=== PATIENT | female | born 1980 | race African-American/Black ===

== ENCOUNTER 2017-04-02 01:23 | Day surgery (SDC) | payer MEDICAID ==
[2017-04-02] MEDS ORDERED: Iopamidol 755 MG/ML 150 ML Bottle IV ONE (05:14)
[2017-04-02] MEDS ORDERED: Metoclopramide 10 MG/2 ML SDV IVPUSH ONE (06:34)
[2017-04-02] MEDS ORDERED: Ketorolac 30 MG/ML SDV IVPUSH ONE ×2 (06:34→10:56)
[2017-04-02] MEDS ORDERED: cefOXitin 2 GM in Sodium Chloride 0.9% 100 ML IV ONE ×5 (07:15→08:00)
--- NOTE | 2017-04-02 07:17 | EDM.PDOC ---
ED HPI GENERAL MEDICAL PROBLEM - General Chief Complaint: General Stated Complaint: STOMACH PAIN Time Seen by Provider: 04/02/17 01:35 Source of Information: Reports: Patient, Family History Limitations: Reports: No Limitations - History of Present Illness INITIAL COMMENTS - FREE TEXT/NARRATIVE: 36 y.o.w.f came to the ed due to RLQ abd pain since yesterday. No F/C. No Trauma, S/P Tubal ligation, s/p Cholecystectomy, s/p descending bladder repair. Onset Date: 03/31/17 Onset Time: 06:00 Duration: Day(s):, Getting Worse Location: Reports: Abdomen (RLQ of abdomen. ) Lower Abdomen Pain Score (Numeric/FACES): 0 - Related Data Allergies Allergy/AdvReac Type Severity Reaction Status Date / Time Latex, Natural Rubber Allergy Swelling Verified 11/28/16 22:44 morphine Allergy Hives Verified 10/10/16 21:58 Home Meds: Home Meds Albuterol/Ipratropium [DuoNeb 3.0-0.5 MG/3 ML] 3 ml NEB Q6HR PRN #30 neb [Rx] Albuterol [IJP: Albuterol] 2.5 mg INH Q4HR PRN 09/09/16 [History] Escitalopram [Lexapro] 20 mg PO BEDTIME 10/10/16 [History] Gabapentin [Neurontin] 300 mg PO BID 11/28/16 [History] Pregabalin [Lyrica] 25 mg PO BEDTIME 11/28/16 [History] Past Medical History - Past Health History Medical/Surgical History: Denies Medical/Surgical History HEENT History: Reports: Impaired Vision Respiratory History: Reports: Asthma, Other (See Below) Other Respiratory History: smoker Gastrointestinal History: Reports: Cholelithiasis, Other (See Below) Other Gastrointestinal History: colitis Genitourinary History: Reports: Renal Calculus, UTI, Recurrent 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 History: Musculoskeletal History: Reports: Arthritis, Other (See Below) Other Musculoskeletal History: carpal tunnel R wrist Neurological History: Reports: Concussion, Migraines Psychiatric History: Reports: Anxiety, Depression, Psych Hospitalization(s) Endocrine/Metabolic History: Reports: Obesity/BMI 30+ Hematologic History: Reports: Anemia, Iron Deficiency Oncologic (Cancer) History: Reports: Uterine - Infectious Disease History Infectious Disease History: Reports: Chicken Pox - Past Surgical History HEENT Surgical History: Reports: Oral Surgery, Tonsillectomy Female Surgical History: Reports: Hysterectomy, Tubal Ligation Musculoskeletal Surgical History: Reports: Arthroscopic Knee Oncologic Surgical History: Reports: None, Other (See Below) Social & Family History - Family History Family Medical History: Noncontributory - Tobacco Use Smoking Status *Q: Current Every Day Smoker Years of Tobacco use: 10 Packs/Tins Daily: 1 Used Tobacco, but Quit: No Second Hand Smoke Exposure: No - Caffeine Use Caffeine Use: Reports: Coffee - Alcohol Use Days Per Week of Alcohol Use: 0 Number of Drinks Per Day: 1 Total Drinks Per Week: 0 - Recreational Drug Use Recreational Drug Use: No Drug Use in Last 12 Months: Yes Recreational Drug Type: Reports: Marijuana/Hashish Recreational Drug Use Frequency: Not Used In Over 1 Month - Living Situation & Occupation Living situation: Reports: , with Family Occupation: Unemployed ED ROS GENERAL - Review of Systems Review Of Systems: See Below Constitutional: Reports: No Symptoms HEENT: Reports: No Symptoms Respiratory: Reports: No Symptoms Cardiovascular: Reports: No Symptoms Endocrine: Reports: No Symptoms GI/Abdominal: Reports: Abdominal Pain : Reports: No Symptoms Musculoskeletal: Reports: No Symptoms Skin: Reports: No Symptoms Neurological: Reports: No Symptoms Psychiatric: Reports: No Symptoms Hematologic/Lymphatic: Reports: No Symptoms Immunologic: Reports: No Symptoms ED EXAM, GENERAL - Physical Exam Exam: See Below Exam Limited By: No Limitations General Appearance: Alert, WD/WN, Mild Distress, Obese Eye Exam: Bilateral Eye: Normal Inspection Ears: Normal External Exam Ear Exam: Bilateral Ear: Auricle Normal Nose: Normal Inspection, Normal Mucosa Throat/Mouth: Normal Inspection, Normal Lips Head: Atraumatic, Normocephalic Neck: Normal Inspection, Supple, Non-Tender, Full Range of Motion Respiratory/Chest: No Respiratory Distress, Lungs Clear, Normal Breath Sounds, No Accessory Muscle Use Cardiovascular: Normal Peripheral Pulses, Regular Rate, Rhythm, No Edema, No Gallop Peripheral Pulses: 1+: Femoral (L), Femoral (R) GI/Abdominal: Normal Bowel Sounds, Rebound, Tender (Female) Exam: Deferred Rectal (Female) Exam: Deferred Back Exam: Normal Inspection, Full Range of Motion Extremities: Normal Inspection, Normal Range of Motion, Non-Tender, No Pedal Edema Neurological: Alert, Oriented, CN II-XII Intact, Normal Cognition, Normal Gait Psychiatric: Normal Affect, Normal Mood Skin Exam: Warm, Dry, Intact, Normal Color, No Rash Lymphatic: No Adenopathy Course - Vital Signs Text/Narrative:: 36 y.o.w.f came to the ed due to RLQ abd pain since yesterday. No F/C. No Trauma, S/P Tubal ligation, s/p Cholecystectomy, s/p descending bladder repair. Last BM lastnight. Last foodintake Tuesday evening, no , does not take any blood thinners. PE: Morbid obese, RLQ abd. pain Labs: WBC 14K Imaging: Possible early appy. Impression: Possible early appy. Tx: 2 gm cefoxitin, Toradol 30 mg and Zofran 8 mg i.v. Reexam: Improved 7.15 am: Consultation: Dr. Choudhury, Surgeon: Will see the pt in the ED Plan: admit for surgery. Last Recorded V/S: Last Vital Signs Temp 37.0 C 04/02/17 04:13 Pulse 86 04/02/17 02:37 Resp 20 04/02/17 04:13 BP 124/72 04/02/17 04:13 Pulse Ox 97 04/02/17 04:13 - Orders/Labs/Meds Orders: Active Orders 24 hr Category Date Time Status Abdomen Pelvis w Cont [CT] Stat Exams 04/02/17 04:49 Taken cefOXitin [Mefoxin] 2 gm Med 04/02/17 07:15 Active Sodium Chloride 0.9% [Normal Saline] 100 ml IV ONETIME Medication Orders Cefoxitin Sodium 2 gm/ Sodium (Chloride) 100 mls @ 200 mls/hr IV ONETIME ONE Stop: 04/02/17 07:44 Labs: Laboratory Tests 04/02/17 04/02/17 04/02/17 Range/Units 02:03 02:03 03:08 WBC 14.3 H (4.5-12.0) X10-3/uL RBC 5.57 H (3.23-5.20) x10(6)uL Hgb 11.7 (11.5-15.5) g/dL Hct 35.7 (30.0-51.3) % MCV 64.1 L (80-96) fL MCH 20.9 L (27.7-33.6) pg MCHC 32.6 (32.2-35.4) g/dL RDW 15.8 H (11.5-15.5) % Plt Count 218 (125-369) X10(3)uL MPV 8.6 (7.4-10.4) fL Neut % (Auto) 69.2 (46-82) % Lymph % (Auto) 24.3 (13-37) % [place] % (Auto) 5.4 (4-12) % Eos % (Auto) 1 (1.0-5.0) % Baso % (Auto) 0 (0-2) % Neut # (Auto) 9.8 H (1.6-8.3) # Lymph # (Auto) 3.5 (0.6-5.0) # [place] # (Auto) 0.8 (0.0-1.3) # Eos # (Auto) 0.1 (0.0-0.8) # Baso # (Auto) 0.1 (0.0-0.2) # Sodium (135-145) mmol/L Potassium (3.5-5.3) mmol/L Chloride (100-110) mmol/L Carbon Dioxide (23-29) mmol/L BUN (5-20) mg/dL Creatinine (0.6-1.3) mg/dL Est Cr Clr Drug Dosing mL/min Estimated GFR (MDRD) (>60) BUN/Creatinine Ratio (9-20) Glucose (80-116) mg/dL Calcium (8.6-10.2) mg/dL Urine Color Yellow (YELLOW) Urine Appearance Slightly cloudy (CLEAR) Urine pH 6.0 (5.0-6.5) Ur Specific [place] 1.015 (1.010-1.025) Urine Protein Negative (NEGATIVE) mg/dL Urine Glucose (UA) Normal (NEGATIVE) mg/dL Urine Ketones Negative (NEGATIVE) mg/dL Urine Occult Blood Negative (NEGATIVE) Urine Nitrite Negative (NEGATIVE) Urine Bilirubin Negative (NEGATIVE) Urine Urobilinogen Normal (NEGATIVE) mg/dL Ur Leukocyte Esterase Negative (NEGATIVE) Urine RBC 0-5 (0) Urine WBC 0-5 (0) Ur Squamous Epith Cells Few H (NS,R,O) Urine Bacteria Few H (NS) Urine HCG, Qual Negative (NEGATIVE) 04/02/17 Range/Units 03:08 WBC (4.5-12.0) X10-3/uL RBC (3.23-5.20) x10(6)uL Hgb (11.5-15.5) g/dL Hct (30.0-51.3) % MCV (80-96) fL MCH (27.7-33.6) pg MCHC (32.2-35.4) g/dL RDW (11.5-15.5) % Plt Count (125-369) X10(3)uL MPV (7.4-10.4) fL Neut % (Auto) (46-82) % Lymph % (Auto) (13-37) % [place] % (Auto) (4-12) % Eos % (Auto) (1.0-5.0) % Baso % (Auto) (0-2) % Neut # (Auto) (1.6-8.3) # Lymph # (Auto) (0.6-5.0) # [place] # (Auto) (0.0-1.3) # Eos # (Auto) (0.0-0.8) # Baso # (Auto) (0.0-0.2) # Sodium 138 (135-145) mmol/L Potassium 3.1 L (3.5-5.3) mmol/L Chloride 105 (100-110) mmol/L Carbon Dioxide 27 (23-29) mmol/L BUN 8 (5-20) mg/dL Creatinine 0.6 (0.6-1.3) mg/dL Est Cr Clr Drug Dosing 100.55 mL/min Estimated GFR (MDRD) > 60 (>60) BUN/Creatinine Ratio 13.3 (9-20) Glucose 93 (80-116) mg/dL Calcium 9.1 (8.6-10.2) mg/dL Urine Color (YELLOW) Urine Appearance (CLEAR) Urine pH (5.0-6.5) Ur Specific [place] (1.010-1.025) Urine Protein (NEGATIVE) mg/dL Urine Glucose (UA) (NEGATIVE) mg/dL Urine Ketones (NEGATIVE) mg/dL Urine Occult Blood (NEGATIVE) Urine Nitrite (NEGATIVE) Urine Bilirubin (NEGATIVE) Urine Urobilinogen (NEGATIVE) mg/dL Ur Leukocyte Esterase (NEGATIVE) Urine RBC (0) Urine WBC (0) Ur Squamous Epith Cells (NS,R,O) Urine Bacteria (NS) Urine HCG, Qual (NEGATIVE) Meds: Medications Generic Name Dose Route Start Last Admin Trade Name Jon PRN Reason Stop Dose Admin Cefoxitin Sodium 2 gm/ Sodium 100 mls @ 200 mls/hr 04/02/17 07:15 Chloride IV 04/02/17 07:44 ONETIME ONE Discontinued Medications Generic Name Dose Route Start Last Admin Trade Name Jon PRN Reason Stop Dose Admin Iopamidol 150 ml 04/02/17 05:14 04/02/17 05:32 Isovue-370 (76%) IV 04/02/17 05:15 118 ml ONETIME ONE Administration Ketorolac Tromethamine 30 mg 04/02/17 06:34 04/02/17 06:42 Toradol IVPUSH 04/02/17 06:35 30 mg ONETIME ONE Administration Metoclopramide HCl 10 mg 04/02/17 06:34 04/02/17 06:42 Reglan IVPUSH 04/02/17 06:35 10 mg ONETIME ONE Administration Departure - Departure Time of Disposition: 07:40 Disposition: Refer to Observation Condition: fair Clinical Impression: Appendicitis Qualifiers: Appendicitis type: acute appendicitis Acute appendicitis type: with localized peritonitis Qualified Code(s): K35.3 - Acute appendicitis with localized peritonitis - Discharge Information Forms: ED Department Discharge - My Orders Last 24 Hours: My Active Orders 04/02/17 04:49 Abdomen Pelvis w Cont [CT] Stat 04/02/17 07:15 cefOXitin [Mefoxin] 2 gm Sodium Chloride 0.9% [Normal Saline] 100 ml IV ONETIME - Assessment/Plan Last 24 Hours: My Active Orders 04/02/17 04:49 Abdomen Pelvis w Cont [CT] Stat 04/02/17 07:15 cefOXitin [Mefoxin] 2 gm Sodium Chloride 0.9% [Normal Saline] 100 ml IV ONETIME
[2017-04-02] MEDS ORDERED: Ondansetron 4 MG/2 ML SDV IVPUSH ONE ×2 (07:53→10:56)
[2017-04-02] MEDS: Lactated Ringers 1,000 ML IV SCH ×2 (08:00→17:35)
[2017-04-02] MEDS ORDERED: Potassium Chloride 20 MEQ in Premix Bag 1 BAG IV ONE (08:04)
[2017-04-02] MEDS ORDERED: Sodium Chloride 0.9% 10 ML Syringe FLUSH PRN (08:05)
--- NOTE | 2017-04-02 08:13 | PCM.HP ---
H&P History of Present Illness - General Date of Service: 04/02/17 Admit Problem/Dx: Admission Diagnosis/Problem Admission Diagnosis/Problem Appendicitis Source of Information: Patient History Limitations: Reports: No Limitations - History of Present Illness Initial Comments - Free Text/Narative: 36 yo wf who as developed some anorexia as well as some abd pain. This also has been accompanied by some emesis and loose stools. The pain apparently got progressively worse during the night. Noted in the ED to have a leukocytosis , and CT scan of the abdomen demonstrated a dilated distal appendiceal tip consistent with early appendicitis. Lower Abdomen Pain Score (Numeric/FACES): 0 - Related Data Allergies/Adverse Reactions: Allergies Allergy/AdvReac Type Severity Reaction Status Date / Time Latex, Natural Rubber Allergy Swelling Verified 11/28/16 22:44 morphine Allergy Hives Verified 10/10/16 21:58 Home Medications: Home Meds Albuterol/Ipratropium [DuoNeb 3.0-0.5 MG/3 ML] 3 ml NEB Q6HR PRN #30 neb [Rx] Albuterol [IJP: Albuterol] 2.5 mg INH Q4HR PRN 09/09/16 [History] Escitalopram [Lexapro] 20 mg PO BEDTIME 10/10/16 [History] Past Medical History - Past Health History Medical/Surgical History: Denies Medical/Surgical History HEENT History: Reports: Impaired Vision Respiratory History: Reports: Asthma, Other (See Below) Other Respiratory History: smoker Gastrointestinal History: Reports: Cholelithiasis, Other (See Below) Other Gastrointestinal History: colitis Genitourinary History: Reports: Renal Calculus, UTI, Recurrent 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 History: Musculoskeletal History: Reports: Arthritis, Other (See Below) Other Musculoskeletal History: carpal tunnel R wrist Neurological History: Reports: Concussion, Migraines Psychiatric History: Reports: Anxiety, Depression, Psych Hospitalization(s) Endocrine/Metabolic History: Reports: Obesity/BMI 30+ Hematologic History: Reports: Anemia, Iron Deficiency Oncologic (Cancer) History: Reports: Uterine - Infectious Disease History Infectious Disease History: Reports: Chicken Pox - Past Surgical History HEENT Surgical History: Reports: Oral Surgery, Tonsillectomy Female Surgical History: Reports: Hysterectomy, Tubal Ligation Musculoskeletal Surgical History: Reports: Arthroscopic Knee Oncologic Surgical History: Reports: None, Other (See Below) Social & Family History - Family History Family Medical History: Noncontributory - Tobacco Use Smoking Status *Q: Current Every Day Smoker Years of Tobacco use: 10 Packs/Tins Daily: 1 Used Tobacco, but Quit: No Second Hand Smoke Exposure: No - Caffeine Use Caffeine Use: Reports: Coffee - Alcohol Use Days Per Week of Alcohol Use: 0 Number of Drinks Per Day: 1 Total Drinks Per Week: 0 - Recreational Drug Use Recreational Drug Use: No Drug Use in Last 12 Months: Yes Recreational Drug Type: Reports: Marijuana/Hashish Recreational Drug Use Frequency: Not Used In Over 1 Month - Living Situation & Occupation Living situation: Reports: , with Family Occupation: Unemployed H&P Review of Systems - Review of Systems: Review Of Systems: See Below General: Reports: Decreased Appetite. Denies: Fever HEENT: Reports: No Symptoms Pulmonary: Reports: No Symptoms Cardiovascular: Reports: No Symptoms Gastrointestinal: Reports: Abdominal Pain, Anorexia, Diarrhea, Nausea Genitourinary: Reports: No Symptoms Musculoskeletal: Reports: No Symptoms Skin: Reports: No Symptoms Exam - Exam Exam: See Below - Vital Signs Vital Signs: Last Vital Signs Temp 37.0 C 04/02/17 04:13 Pulse 86 04/02/17 02:37 Resp 20 04/02/17 04:13 BP 124/72 04/02/17 04:13 Pulse Ox 97 04/02/17 04:13 Weight: 104.326 kg - Exam General: Alert, Oriented, Cooperative HEENT: PERRLA, Conjunctiva Clear, EOMI, Hearing Intact, Nares Patent, Posterior Pharynx Clear Neck: Supple Lungs: Clear to Auscultation, Normal Respiratory Effort Cardiovascular: Regular Rate, Regular Rhythm Abdomen: Normal Bowel Sounds, Soft, Tenderness, McBurney's Sign (Female) Exam: Deferred Extremities: Normal Inspection - Patient Data Lab Results last 24 hrs: Laboratory Results - last 24 hr 04/02/17 04/02/17 04/02/17 Range/Units 02:03 02:03 03:08 WBC 14.3 H (4.5-12.0) X10-3/uL RBC 5.57 H (3.23-5.20) x10(6)uL Hgb 11.7 (11.5-15.5) g/dL Hct 35.7 (30.0-51.3) % MCV 64.1 L (80-96) fL MCH 20.9 L (27.7-33.6) pg MCHC 32.6 (32.2-35.4) g/dL RDW 15.8 H (11.5-15.5) % Plt Count 218 (125-369) X10(3)uL MPV 8.6 (7.4-10.4) fL Neut % (Auto) 69.2 (46-82) % Lymph % (Auto) 24.3 (13-37) % [place] % (Auto) 5.4 (4-12) % Eos % (Auto) 1 (1.0-5.0) % Baso % (Auto) 0 (0-2) % Neut # (Auto) 9.8 H (1.6-8.3) # Lymph # (Auto) 3.5 (0.6-5.0) # [place] # (Auto) 0.8 (0.0-1.3) # Eos # (Auto) 0.1 (0.0-0.8) # Baso # (Auto) 0.1 (0.0-0.2) # Sodium (135-145) mmol/L Potassium (3.5-5.3) mmol/L Chloride (100-110) mmol/L Carbon Dioxide (23-29) mmol/L BUN (5-20) mg/dL Creatinine (0.6-1.3) mg/dL Est Cr Clr Drug Dosing mL/min Estimated GFR (MDRD) (>60) BUN/Creatinine Ratio (9-20) Glucose (80-116) mg/dL Calcium (8.6-10.2) mg/dL Urine Color Yellow (YELLOW) Urine Appearance Slightly cloudy (CLEAR) Urine pH 6.0 (5.0-6.5) Ur Specific [place] 1.015 (1.010-1.025) Urine Protein Negative (NEGATIVE) mg/dL Urine Glucose (UA) Normal (NEGATIVE) mg/dL Urine Ketones Negative (NEGATIVE) mg/dL Urine Occult Blood Negative (NEGATIVE) Urine Nitrite Negative (NEGATIVE) Urine Bilirubin Negative (NEGATIVE) Urine Urobilinogen Normal (NEGATIVE) mg/dL Ur Leukocyte Esterase Negative (NEGATIVE) Urine RBC 0-5 (0) Urine WBC 0-5 (0) Ur Squamous Epith Cells Few H (NS,R,O) Urine Bacteria Few H (NS) Urine HCG, Qual Negative (NEGATIVE) 04/02/17 Range/Units 03:08 WBC (4.5-12.0) X10-3/uL RBC (3.23-5.20) x10(6)uL Hgb (11.5-15.5) g/dL Hct (30.0-51.3) % MCV (80-96) fL MCH (27.7-33.6) pg MCHC (32.2-35.4) g/dL RDW (11.5-15.5) % Plt Count (125-369) X10(3)uL MPV (7.4-10.4) fL Neut % (Auto) (46-82) % Lymph % (Auto) (13-37) % [place] % (Auto) (4-12) % Eos % (Auto) (1.0-5.0) % Baso % (Auto) (0-2) % Neut # (Auto) (1.6-8.3) # Lymph # (Auto) (0.6-5.0) # [place] # (Auto) (0.0-1.3) # Eos # (Auto) (0.0-0.8) # Baso # (Auto) (0.0-0.2) # Sodium 138 (135-145) mmol/L Potassium 3.1 L (3.5-5.3) mmol/L Chloride 105 (100-110) mmol/L Carbon Dioxide 27 (23-29) mmol/L BUN 8 (5-20) mg/dL Creatinine 0.6 (0.6-1.3) mg/dL Est Cr Clr Drug Dosing 100.55 mL/min Estimated GFR (MDRD) > 60 (>60) BUN/Creatinine Ratio 13.3 (9-20) Glucose 93 (80-116) mg/dL Calcium 9.1 (8.6-10.2) mg/dL Urine Color (YELLOW) Urine Appearance (CLEAR) Urine pH (5.0-6.5) Ur Specific [place] (1.010-1.025) Urine Protein (NEGATIVE) mg/dL Urine Glucose (UA) (NEGATIVE) mg/dL Urine Ketones (NEGATIVE) mg/dL Urine Occult Blood (NEGATIVE) Urine Nitrite (NEGATIVE) Urine Bilirubin (NEGATIVE) Urine Urobilinogen (NEGATIVE) mg/dL Ur Leukocyte Esterase (NEGATIVE) Urine RBC (0) Urine WBC (0) Ur Squamous Epith Cells (NS,R,O) Urine Bacteria (NS) Urine HCG, Qual (NEGATIVE) Result Diagrams: 04/02/17 03:08 04/02/17 03:08 *Q Meaningful Use (ADM) - VTE *Q VTE Criteria *Q: VTE Anticoagulation Contraindications: Medical/procedure contrai - Stroke *Q Stroke Criteria *Q: - AMI *Q AMI Criteria *Q: - Problem List (1) Appendicitis SNOMED Code(s): 48295650 ICD Code: K37 - UNSPECIFIED APPENDICITIS Status: Acute Current Visit: Yes Qualifiers: Appendicitis type: acute appendicitis Acute appendicitis type: with localized peritonitis Qualified Code(s): K35.3 - Acute appendicitis with localized peritonitis Problem List Initiated/Reviewed/Updated: Yes Orders Last 24hrs: Active Orders 24 hr Category Date Time Status Patient Status [ADT] Routine ADT 04/02/17 08:05 Ordered Patient to Empty Bladder [RC] ASDIRECTED Care 04/02/17 08:05 Ordered Verify Patient Consent Obtain [RC] ASDIRECTED Care 04/02/17 08:05 Ordered Nothing Per Oral Diet [DIET] Diet 04/02/17 Breakfast Ordered Abdomen Pelvis w Cont [CT] Stat Exams 04/02/17 04:49 Taken Lactated Ringers @ 125 MLS/HR(1000ml) Med 04/02/17 08:15 Ordered Lactated Ringers [Ringers, Lactated] 1,000 ml IV ASDIRECTED Potassium Chloride [KCL 20 MEQ in Water 100 ML] 20 meq Med 04/02/17 08:04 Ordered Premix Bag 1 bag IV ONETIME Sodium Chloride 0.9% [Saline Flush] Med 04/02/17 08:05 Ordered 10 ml FLUSH ASDIRECTED PRN cefOXitin [Mefoxin] 2 gm Med 04/02/17 08:00 Active Sodium Chloride 0.9% [Normal Saline] 100 ml IV ONETIME Peripheral IV Insertion Adult [OM.PC] Routine Oth 04/02/17 08:05 Ordered Sequential Compression Device [OM.PC] Routine Oth 04/02/17 08:05 Ordered Resuscitation Status Routine Resus Stat 04/02/17 08:05 Ordered Medication Orders Cefoxitin Sodium 2 gm/ Sodium (Chloride) 100 mls @ 200 mls/hr IV ONETIME ONE Stop: 04/02/17 08:29 Potassium Chloride 20 meq/ (Premix) 100 mls @ 50 mls/hr IV ONETIME ONE Stop: 04/02/17 10:03 Assessment/Plan Comment:: lap appendectomy. procedure and risks were explained to the pt to include bleeding, infection, injury to bowel, bladder, blood vessel. The need to convert to open was also discussed. She expressed understanding and asked us to proceed.
[2017-04-02] MEDS ORDERED: fentaNYL 100 MCG/2 ML SDV IV ONE (10:56)
[2017-04-02] MEDS ORDERED: Dexamethasone 4 MG/ML 5 ML MDV IVPUSH ONE (10:56)
[2017-04-02] MEDS ORDERED: Rocuronium 50 MG/5 ML Vial IV ONE (10:56)
[2017-04-02] MEDS ORDERED: Propofol 200 MG/20 ML SDV IV ONE (10:56)
[2017-04-02] MEDS ORDERED: Albuterol 8 GM Inhaler INH ONE (10:56)
[2017-04-02] MEDS ORDERED: Lidocaine 2% 100 MG/5 ML Syringe IVPUSH ONE (10:56)
[2017-04-02] MEDS ORDERED: diphenhydrAMINE 50 MG/ML SDV IV ONE (10:56)
[2017-04-02] MEDS ORDERED: Midazolam 1 MG/ML 2 ML SDV IV ONE (10:56)
[2017-04-02] MEDS ORDERED: Succinylcholine/Normal Saline 200 MG/10 ML Syringe IV ONE (10:56)
[2017-04-02] MEDS ORDERED: Lactated Ringers 1,000 ML IV ONE (10:56)
[2017-04-02] MEDS ORDERED: Sugammadex Sodium 200 MG/2 ML VIAL IV ONE (10:56)
[2017-04-02] MEDS ORDERED: Bupivacaine 0.5% 30 ML SDV ONE (11:37)
[2017-04-02] MEDS ORDERED: Lidocaine 1% with EPINEPHrine 1:100,000 20 ML MDV ONE (11:38)
[2017-04-02] MEDS ORDERED: HYDROmorphone 2 MG/ML SDV IVPUSH PRN (11:50)
--- NOTE | 2017-04-02 11:50 | PCM.OPNOTE ---
- General Post-Op/Procedure Note Date of Surgery/Procedure: 04/02/17 Operative Procedure(s): lap appendectomy Findings: early appendicitis Pre Op Diagnosis: appendicitis Post-Op Diagnosis: Same Anesthesia Technique: General ET tube, Local (8 ml 1 % lido with epi/0.5% buvipicaine) Primary Surgeon: Bj Choudhury Anesthesia Provider: Guillermina Cagle Pathology: appendix EBL in mLs: 2 Condition: Good Free Text/Narrative:: see dictation
[2017-04-02] MEDS ORDERED: Ondansetron 4 MG/2 ML SDV IVPUSH PRN (12:39)
[2017-04-02] MEDS: cefOXitin 2 GM in Sodium Chloride 0.9% 50 ML IV SCH ×2 (13:42→19:54)
[2017-04-02] MEDS: Acetaminophen/HYDROcodone 325-5 MG Tab PO PRN ×2 (17:30→22:05)
--- NOTE | 2017-04-02 18:15 | OR ---
DATE OF OPERATION: 04/02/2017 SURGEON: Bj Choudhury MD PROCEDURE PERFORMED: Laparoscopic appendectomy. PREOPERATIVE DIAGNOSIS: Acute appendicitis. POSTOPERATIVE DIAGNOSIS: Acute appendicitis. INDICATIONS FOR PROCEDURE: This is a 36-year-old white female, who presented to the emergency department and underwent a subsequent workup, which demonstrated leukocytosis as well as an early appendicitis on CT scan. She was also noted to have marked rebound and guarding in the right lower quadrant. She was offered and accepted laparoscopic appendectomy. INTRAOPERATIVE FINDINGS: As follows. An early appendicitis was identified. A total of 8 mL of 1:1 mixture of 1% lidocaine with epinephrine, 0.5% bupivacaine was used to infiltrate the trocar sites. DESCRIPTION OF OPERATION: After an excellent general anesthetic was administered, the patient was prepped and draped in the usual sterile manner. A 1:1 mixture of 1% lidocaine with epinephrine 0.5% bupivacaine was used to infiltrate the area just below the umbilicus. A vertical midline incision was made. Blunt dissection was carried out exposing the midline fascia. Two stay sutures of 0 Vicryl were placed on either side of the midline fascia. The fascia was elevated, incised, and the abdominal cavity was entered. A 10.5 mm Triston trocar was inserted into the patient's abdomen, which was then insufflated to 15 mmHg using carbon dioxide. Under direct visualization, two 5 mm ports were placed, one in the midline just below the umbilical insertion and one in the right lower quadrant. The cecum was grasped. The large appendix was identified. A rent was made in the mesoappendix and using a 2.5 mm load, the appendix was transected from the cecum. Using an additional two firings of the 2.5 load, the mesoappendix was divided. Specimen was passed into the specimen bag and delivered out through the umbilical port. The area was irrigated and after assuring excellent hemostasis, the trocars were removed under direct visualization. Fascia was closed with [id number] 0 Vicryl and the 2 stay sutures were tied to each other. [place] were used to close the skin. Needle, sponge, and instrument counts were reported as correct. The patient was taken to recovery room in good condition. /[id number] /MODL
[2017-04-03] MEDS: cefOXitin 2 GM in Sodium Chloride 0.9% 50 ML IV SCH (01:59)
[2017-04-03] MEDS: Lactated Ringers 1,000 ML IV SCH (02:00)
--- NOTE | 2017-04-03 07:50 | PCM.SURGPN ---
- General Info Date of Service: 04/03/17 POD#: 1 Functional Status: Reports: pain controlled, tolerating diet, ambulating, new symptoms - Review of Systems HEENT: Reports: no symptoms Pulmonary: Reports: no symptoms Cardiovascular: Reports: No Symptoms Gastrointestinal: Reports: No symptoms, Flatus - Patient Data Vitals - most recent: Last Vital Signs Temp 36.9 C 04/03/17 04:00 Pulse 73 04/03/17 04:00 Resp 20 04/03/17 04:00 BP 131/84 04/03/17 04:00 Pulse Ox 95 04/03/17 04:00 Weight - most recent: 101.695 kg I&O - last 24 hours: Intake & Output 04/02/17 04/03/17 04/03/17 22:59 06:59 14:59 Intake Total 50 4052 Balance 50 4052 Lab Results last 24 hrs: Laboratory Results - last 24 hr 04/03/17 Range/Units 06:10 WBC 18.2 H (4.5-12.0) X10-3/uL RBC 5.12 (3.23-5.20) x10(6)uL Hgb 10.6 L (11.5-15.5) g/dL Hct 32.5 (30.0-51.3) % MCV 63.5 L (80-96) fL MCH 20.7 L (27.7-33.6) pg MCHC 32.6 (32.2-35.4) g/dL RDW 16.1 H (11.5-15.5) % Plt Count 196 (125-369) X10(3)uL MPV 8.5 (7.4-10.4) fL Add Manual Diff Yes Neutrophils % (Manual) 85 H (46-82) % Band Neutrophils % 2 (0-6) % Lymphocytes % (Manual) 11 L (13-37) % Monocytes % (Manual) 2 L (4-12) % Hypochromasia Moderate H Microcytosis Many H Med Orders - Current: Current Medications Hydrocodone Bitart/Acetaminophen (Dante 325-5 Mg) 1 tab PO Q4H PRN PRN Reason: Pain Last Admin: 04/02/17 22:05 Dose: 1 tab Lactated Ringer's (Ringers, Lactated) 1,000 mls @ 125 mls/hr IV ASDIRECTED [facility] Last Admin: 04/03/17 02:00 Dose: 125 mls/hr Cefoxitin Sodium 2 gm/ Sodium (Chloride) 50 mls @ 100 mls/hr IV Q6H [facility] Last Admin: 04/03/17 01:59 Dose: 100 mls/hr Ondansetron HCl (Zofran) 4 mg IVPUSH Q8H PRN PRN Reason: Nausea/Vomiting Sodium Chloride (Saline Flush) 10 ml FLUSH ASDIRECTED PRN PRN Reason: Keep Vein Open Discontinued Medications Bupivacaine HCl (Marcaine 0.5%) 15 ml .XX .STK-MED ONE Stop: 04/02/17 11:38 Last Admin: 04/02/17 11:37 Dose: 15 ml Hydromorphone HCl (Dilaudid) 1 mg IVPUSH Q1H PRN PRN Reason: Pain (moderate 4-6) Cefoxitin Sodium 2 gm/ Sodium (Chloride) 100 mls @ 200 mls/hr IV ONETIME ONE Stop: 04/02/17 08:29 Cefoxitin Sodium 2 gm/ Sodium (Chloride) 100 mls @ 200 mls/hr IV ONETIME ONE Stop: 04/02/17 08:29 Last Admin: 04/02/17 08:10 Dose: 200 mls/hr Potassium Chloride 20 meq/ (Premix) 100 mls @ 50 mls/hr IV ONETIME ONE Stop: 04/02/17 10:03 Last Admin: 04/02/17 08:40 Dose: 50 mls/hr Iopamidol (Isovue-370 (76%)) 150 ml IV ONETIME ONE Stop: 04/02/17 05:15 Last Admin: 04/02/17 05:32 Dose: 118 ml Ketorolac Tromethamine (Toradol) 30 mg IVPUSH ONETIME ONE Stop: 04/02/17 06:35 Last Admin: 04/02/17 06:42 Dose: 30 mg Lidocaine/Epinephrine (Xylocaine 1% With Epinephrine 1:100,000) 15 ml .XX .STK- MED ONE Stop: 04/02/17 11:39 Last Admin: 04/02/17 11:38 Dose: 15 ml Metoclopramide HCl (Reglan) 10 mg IVPUSH ONETIME ONE Stop: 04/02/17 06:35 Last Admin: 04/02/17 06:42 Dose: 10 mg Ondansetron HCl (Zofran) 8 mg IVPUSH ONETIME ONE Stop: 04/02/17 07:54 Last Admin: 04/02/17 08:15 Dose: 8 mg - Exam Wound/Incisions: dressing dry and intact General: alert, oriented, no acute distress Lungs: Clear to auscultation, Normal respiratory effort Cardiovascular: Regular Rate, Regular Rhythm Abdomen: bowel sounds present, soft, no tenderness, no distension Skin: warm, dry, intact - Problem List & Annotations (1) Appendicitis SNOMED Code(s): 92244168 Code(s): K37 - UNSPECIFIED APPENDICITIS Status: Acute Current Visit: Yes Qualifiers: Appendicitis type: acute appendicitis Acute appendicitis type: with localized peritonitis Qualified Code(s): K35.3 - Acute appendicitis with localized peritonitis - Problem List Review Problem List Initiated/Reviewed/Updated: Yes - My Orders Last 24 Hours: Active Orders 24 hr Category Date Time Status Patient Status [ADT] Routine ADT 04/02/17 08:05 Active Ambulate [RC] .TID Care 04/02/17 11:51 Active Notify Provider Vital Signs [RC] PRN Care 04/02/17 11:51 Active Oxygen Therapy [RC] PRN Care 04/02/17 11:50 Active Patient to Empty Bladder [RC] ASDIRECTED Care 04/02/17 08:05 Hold RT Incentive Spirometry [RC] Q2HWA Care 04/02/17 11:50 Active Vital Signs [RC] Q4HR Care 04/02/17 11:50 Active Clear Liquid Diet [DIET] Diet 04/02/17 Dinner Ordered Acetaminophen/HYDROcodone [Dante 325-5 MG] Med 04/02/17 13:07 Active 1 tab PO Q4H PRN Lactated Ringers [Ringers, Lactated] 1,000 ml Med 04/02/17 08:15 Active IV ASDIRECTED Ondansetron [Zofran] Med 04/02/17 12:39 Active 4 mg IVPUSH Q8H PRN Sodium Chloride 0.9% [Saline Flush] Med 04/02/17 08:05 Active 10 ml FLUSH ASDIRECTED PRN cefOXitin [Mefoxin] 2 gm Med 04/02/17 14:00 Active Sodium Chloride 0.9% [Normal Saline] 50 ml IV Q6H Peripheral IV Insertion Adult [OM.PC] Routine Oth 04/02/17 08:05 Ordered Sequential Compression Device [OM.PC] Routine Oth 04/02/17 08:05 Ordered Resuscitation Status Routine Resus Stat 04/02/17 08:05 Ordered Medication Orders Hydrocodone Bitart/Acetaminophen (Dante 325-5 Mg) 1 tab PO Q4H PRN PRN Reason: Pain Last Admin: 04/02/17 22:05 Dose: 1 tab Admin: 04/02/17 17:30 Dose: 1 tab Lactated Ringer's (Ringers, Lactated) 1,000 mls @ 125 mls/hr IV ASDIRECTED [facility] Last Admin: 04/03/17 02:00 Dose: 125 mls/hr Infusion: 04/03/17 01:35 Dose: 125 mls/hr Admin: 04/02/17 17:35 Dose: 125 mls/hr Infusion: 04/02/17 16:00 Dose: 125 mls/hr Admin: 04/02/17 08:00 Dose: 125 mls/hr Cefoxitin Sodium 2 gm/ Sodium (Chloride) 50 mls @ 100 mls/hr IV Q6H [facility] Last Admin: 04/03/17 01:59 Dose: 100 mls/hr Admin: 04/02/17 19:54 Dose: 100 mls/hr Admin: 04/02/17 13:42 Dose: 100 mls/hr Ondansetron HCl (Zofran) 4 mg IVPUSH Q8H PRN PRN Reason: Nausea/Vomiting Sodium Chloride (Saline Flush) 10 ml FLUSH ASDIRECTED PRN PRN Reason: Keep Vein Open - Assessment Assessment (Free Text/Narrative):: while wbc is up clinically her exam is totally unremarkable. this appears to be more of a demargination than anything. will discharge to home
[2017-04-03 08:30] VITALS: BP 141/90
== END 2017-04-03 08:25 | disposition home or self-care (01) ==
LOC: FB.ED 01:23 → FB.SDS 08:39 → FB.MS 08:39 → FB.SDS 04-03 08:25
PROVIDERS: ATTEND Surgery
DX: K35.3 Acute appendicitis with localized peritonitis (principal); J45.909 Unspecified asthma, uncomplicated; F41.9 Anxiety disorder, unspecified; F32.9 Major depressive disorder, single episode, unspecified; E66.9 Obesity, unspecified; Z88.8 Allergy status to other drugs, medicaments and biological substances; Z91.040 Latex allergy status; Z79.899 Other long term (current) drug therapy; Z90.710 Acquired absence of both cervix and uterus; Z98.890 Other specified postprocedural states; Z98.51 Tubal ligation status; F17.210 Nicotine dependence, cigarettes, uncomplicated; Z68.30 Body mass index [BMI] 30.0-30.9, adult
CPT/HCPCS: 36415; 44970; 74177; 80048; 81001; 81025; 85025; 94150; 96365; 96367; 96375; 99283; A9270; J0694; J1100; J1200; J1885; J2250; J2405; J2704; J2765; J3010; J3480; J7030; J7050; J7120; Q9967; 88304; 88341; 88342

== ENCOUNTER 2017-08-06 19:39 | Emergency (ER) | payer MEDICAID ==
[2017-08-06 20:43] VITALS: BP 149/98
--- NOTE | 2017-08-07 00:49 | ER ---
DATE SEEN: 08/06/2017 TIME SEEN: The patient was seen at 1956 hours. HISTORY OF PRESENT ILLNESS: This 36-year-old 1, para 1 single unmarried mother comes in with 2 days' duration of swelling and tenderness at the perineum between the posterior labia on the left side and the anus. She has not had sex for 16 years. She denies pelvic discharge. No fever, chills, cough, trauma, or squeezing. Right now, this is painful and she has difficulty sitting up. Denies vaginal discharge. Denies STDs. She has not been on antibiotics recently. She is not diabetic. PAST MEDICAL HISTORY: She has asthma and depression. She uses albuterol and DuoNeb. Other health problems negative. She has some sciatic nerve discomfort with low back pain and obesity. Has occasional chronic headaches. Status post appendectomy. ALLERGIES: Latex and morphine. CURRENT MEDICATIONS: Negative. PHYSICAL EXAMINATION: VITAL SIGNS: Blood pressure 141/89, heart rate 96, respirations 18, and oxygen saturation 98%. 101.95 kg (BMI 41.0). GENERAL: A pleasant woman. HEENT: Without abnormality. She has mild carious teeth. Pharynx without abnormality. NECK: Supple. No thyromegaly or masses in neck. LUNGS: Clear to auscultation without rales, rhonchi, or wheezes. HEART: S1, S2. No murmur. No irregularity of rhythm. ABDOMEN: Soft, nontender. No guarding. No abdominal discomfort. : With 2 nurses in the room, perineum was inspected. It has been shaved. Regrowth of hair is probably 3 mm to 4 mm. Labia minora and majora are normal in appearance. Fourchette is normal. Speculum exam was not performed of the vagina. Bartholin glands were not inflamed, not swollen. Gentle pressure on the left perineum between the left labia majora and the anus, has mild induration approximately 3 cm with a pustule in the center. This is not fluctuant. It is very tender and she wailed and moaned as I gently touched it. She pleaded with me not to squeeze it, I did not. ASSESSMENT: Abscess, left perineum. PLAN: Use antibiotic. She is not allergic to any antibiotics. Plan to utilize Augmentin 875 mg b.i.d. This will cover Gram-negatives and Gram-positives. Initially, thought about using Keflex, but Augmentin would be more inclusive. Do not squeeze it. Follow up with doctor in 3 to 5 days. Incision and drainage when the abscess becomes mature. She will use Tylenol, ibuprofen over-the- counter 600 mg coupled with 1000 mg of ibuprofen and Tylenol. /[id number] SUDEEP/SHIRLEY
== END 2017-08-06 20:41 | disposition home or self-care (01) ==
LOC: FB.ED 19:39
DX: L02.215 Cutaneous abscess of perineum (principal); J45.909 Unspecified asthma, uncomplicated; F32.9 Major depressive disorder, single episode, unspecified; Z90.49 Acquired absence of other specified parts of digestive tract; Z88.5 Allergy status to narcotic agent; Z91.040 Latex allergy status
CPT/HCPCS: 99282

== ENCOUNTER 2018-03-09 01:37 | Emergency (ER) | payer MEDICAID ==
[2018-03-09] MEDS ORDERED: Cephalexin 500 MG Cap PO ONE (02:47)
--- NOTE | 2018-03-09 02:49 | EDM.PDOC ---
ED HPI GENERAL MEDICAL PROBLEM - General Chief Complaint: Respiratory Problem Stated Complaint: TROUBLE BREATHING Time Seen by Provider: 03/09/18 02:30 Source of Information: Reports: Patient History Limitations: Reports: No Limitations - History of Present Illness INITIAL COMMENTS - FREE TEXT/NARRATIVE: c/o cough, rhinorrhea and ST x 2d works at [employer] on weekends, works next in 2d no fever did have flu vax rebel rib area Pain Score (Numeric/FACES): 5 - Related Data Allergies Allergy/AdvReac Type Severity Reaction Status Date / Time Latex, Natural Rubber Allergy Swelling Verified 03/09/18 01:54 morphine Allergy Hives Verified 03/09/18 01:54 Home Meds: Home Meds Albuterol/Ipratropium [DuoNeb 3.0-0.5 MG/3 ML] 3 ml NEB Q6HR PRN #30 neb [Rx] Albuterol [IJP: Albuterol] 2.5 mg INH Q4HR PRN 09/09/16 [History] Escitalopram [Lexapro] 20 mg PO BEDTIME 10/10/16 [History] Cephalexin 500 mg PO TID #21 tablet 03/09/18 [Rx] Past Medical History - Past Health History Medical/Surgical History: Denies Medical/Surgical History HEENT History: Reports: Impaired Vision Respiratory History: Reports: Asthma, Other (See Below) Other Respiratory History: smoker Gastrointestinal History: Reports: Cholelithiasis, Other (See Below) Other Gastrointestinal History: colitis Genitourinary History: Reports: Renal Calculus, UTI, Recurrent Other Genitourinary History: bladder surgery 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 History: Musculoskeletal History: Reports: Arthritis, Fibromyalgia, Other (See Below) Other Musculoskeletal History: carpal tunnel R wrist, sciatica Neurological History: Reports: Concussion, Migraines Psychiatric History: Reports: Anxiety, Depression, Psych Hospitalization(s) Endocrine/Metabolic History: Reports: Obesity/BMI 30+ Hematologic History: Reports: Anemia, Iron Deficiency Oncologic (Cancer) History: Reports: Uterine - Infectious Disease History Infectious Disease History: Reports: Chicken Pox, Measles - Past Surgical History HEENT Surgical History: Reports: Oral Surgery, Tonsillectomy Female Surgical History: Reports: Hysterectomy, Tubal Ligation Musculoskeletal Surgical History: Reports: Arthroscopic Knee Oncologic Surgical History: Reports: None, Other (See Below) Social & Family History - Family History Family Medical History: Noncontributory - Tobacco Use Smoking Status *Q: Current Every Day Smoker Years of Tobacco use: 20 Packs/Tins Daily: 1 - Caffeine Use Caffeine Use: Reports: Soda - Recreational Drug Use Recreational Drug Use: Yes Recreational Drug Type: Reports: Marijuana/Hashish Recreational Drug Use Frequency: Daily - Living Situation & Occupation Living situation: Reports: , with Family Occupation: Unemployed ED ROS GENERAL - Review of Systems Review Of Systems: See Below Constitutional: Reports: No Symptoms HEENT: Reports: Rhinitis, Throat Pain Respiratory: Reports: Cough Cardiovascular: Reports: No Symptoms Endocrine: Reports: No Symptoms GI/Abdominal: Reports: No Symptoms : Reports: No Symptoms Musculoskeletal: Reports: No Symptoms Skin: Reports: No Symptoms Neurological: Reports: No Symptoms Psychiatric: Reports: No Symptoms Hematologic/Lymphatic: Reports: No Symptoms Immunologic: Reports: No Symptoms ED EXAM, GENERAL - Physical Exam Exam: See Below Exam Limited By: No Limitations General Appearance: Alert, WD/WN, No Apparent Distress Ears: Normal External Exam, Hearing Grossly Normal Nose: Normal Mucosa, No Blood, Other (slight swell only, clear mucus) Throat/Mouth: Other (tonsils surgically absent, slight red, no exudate, no LNs, voice hoarse) Head: Atraumatic, Normocephalic Neck: Normal Inspection, Supple, Non-Tender, Full Range of Motion. No: Lymphadenopathy (R), Lymphadenopathy (L) Respiratory/Chest: No Respiratory Distress, Lungs Clear, Normal Breath Sounds, No Accessory Muscle Use, Chest Non-Tender Cardiovascular: Regular Rate, Rhythm, No Edema, No Gallop, No Murmur, No Rub GI/Abdominal: Soft, Non-Tender, No Distention Back Exam: Normal Inspection, Full Range of Motion, NT Extremities: Normal Inspection, Normal Range of Motion, Non-Tender, No Pedal Edema Neurological: Alert, Oriented, CN II-XII Intact, Normal Cognition, No Motor/ Sensory Deficits Psychiatric: Normal Affect, Normal Mood Skin Exam: Warm, Dry, Intact, Normal Color, No Rash Lymphatic: No Adenopathy Course - Vital Signs Last Recorded V/S: Last Vital Signs Temp 36.7 C 03/09/18 01:40 Pulse 93 03/09/18 01:40 Resp 18 03/09/18 01:40 BP 127/87 03/09/18 01:40 Pulse Ox 99 03/09/18 01:40 - Orders/Labs/Meds Orders: Active Orders 24 hr Category Date Time Status INFLUENZA A+B AG SCREEN [RM] Stat Lab 03/09/18 02:09 Ordered STREP SCRN A RAPID W CULT CONF [] Stat Lab 03/09/18 02:09 Ordered - Re-Assessments/Exams Free Text/Narrative Re-Assessment/Exam: 03/09/18 02:47 strep pos, likely has a virus as well causing rhinorrhea and cough Departure - Departure Time of Disposition: 02:47 Disposition: Home, Self-Care 01 Condition: Good Clinical Impression: Strep pharyngitis - Discharge Information Prescriptions: Cephalexin 500 mg PO TID #21 tablet Instructions: Strep Throat Referrals: Sonny Phipps MD [Primary Care Provider] - Additional Instructions: For infection, take cephalexin 500 mg 1 tab 3 times a day for 7 days. For pain and inflammation, take ibuprofen 200 mg 3 tabs 4 times a day as needed. See your doctor if you are not better in 4 days. No work for 24 hours. - My Orders Last 24 Hours: My Active Orders 03/09/18 02:09 INFLUENZA A+B AG SCREEN [RM] Stat STREP SCRN A RAPID W CULT CONF [] Stat - Assessment/Plan Last 24 Hours: My Active Orders 03/09/18 02:09 INFLUENZA A+B AG SCREEN [RM] Stat STREP SCRN A RAPID W CULT CONF [RM] Stat
[2018-03-09 03:00] VITALS: BP 128/100
== END 2018-03-09 03:00 | disposition home or self-care (01) ==
LOC: FB.ED 01:37
DX: J02.0 Streptococcal pharyngitis (principal); F17.210 Nicotine dependence, cigarettes, uncomplicated; Z91.040 Latex allergy status; Z88.5 Allergy status to narcotic agent
CPT/HCPCS: 87804; 87804-59; 87880-QW; 99282; A9270-GY

== ENCOUNTER 2018-04-23 23:08 | Emergency (ER) | payer MEDICAID ==
[2018-04-23] MEDS ORDERED: Codeine/guaiFENesin 100mg-10 MG/5 ML Soln 118 ML Bottle PO ONE (23:28)
[2018-04-23] MEDS ORDERED: predniSONE 10 MG Tab PO ONE (23:28)
[2018-04-23] MEDS ORDERED: Albuterol/Ipratropium 3.0-0.5 MG/3 ML Neb Soln ONE (23:32)
[2018-04-23] MEDS ORDERED: Albuterol/Ipratropium 3.0-0.5 MG/3 ML Neb Soln NEB ONE (23:32)
--- NOTE | 2018-04-24 01:02 | ER ---
DATE SEEN: 04/23/2018 REASON FOR VISIT: Cough. HISTORY OF PRESENT ILLNESS: This is a 37-year-old female who has asthma. She presents because of a cough and wheezing, tightness of the chest. Symptoms have lasted "awhile." There is no fever. Cough causes pain in the left side of the chest, rib cage. PAST MEDICAL HISTORY: Asthma, chronic back pain, dental caries, chronic headache disorder. ALLERGIES: Morphine, latex, natural rubber. MEDICATIONS: 1. Citalopram. 2. Cephalexin. 3. Albuterol. PHYSICAL EXAMINATION: GENERAL: She constantly is coughing. VITAL SIGNS: She has oxygenation 94% on room air. She is afebrile. EARS, NOSE AND THROAT: Negative. NECK: Supple. CHEST: Diminished breath sounds. EXTREMITIES: No edema. LABORATORY DATA: No labs. IMPRESSION: Acute exacerbation of asthma. TREATMENT: A 10 mg of prednisone b.i.d., Robitussin with codeine 10 mL every 6 hours and 1 DuoNeb given in the ER. Tobacco cessation discussed. Discharged and advised to see Dr. Phipps in 2 days or as needed. /[id number] TONI/SHIRLEY
[2018-04-24 01:29] VITALS: BP 128/91
== END 2018-04-23 23:54 | disposition home or self-care (01) ==
LOC: FB.ED 23:08
DX: J45.901 Unspecified asthma with (acute) exacerbation (principal)
CPT/HCPCS: 94640; 99282; J7620; A9270-GY

== ENCOUNTER 2018-07-16 14:43 | Emergency (ER) | payer MEDICAID, MEDICARE ==
[2013-07-11 21:49] VITALS: BP 124/90
[2018-07-16] MEDS ORDERED: Sodium Chloride 0.9% 10 ML Syringe FLUSH PRN (15:13)
[2018-07-16] MEDS ORDERED: Sodium Chloride 0.9% 1,000 ML IV ONE (15:13)
[2018-07-16] MEDS ORDERED: Ondansetron 4 MG/2 ML SDV IVPUSH ONE (15:14)
[2018-07-16] MEDS ORDERED: HYDROmorphone 2 MG/ML SDV IVPUSH ONE (15:14)
--- NOTE | 2018-07-16 15:20 | EDM.PDOC ---
ED HPI GENERAL MEDICAL PROBLEM - General Chief Complaint: Abdominal Pain Stated Complaint: HEADACHE, STOMACH PAIN Time Seen by Provider: 07/16/18 15:15 Source of Information: Reports: Patient, EMS History Limitations: Reports: No Limitations - History of Present Illness INITIAL COMMENTS - FREE TEXT/NARRATIVE: Presents with LLQ abdominal pain and generalized headache x 4 days associated with nausea. Denies vomiting, constipation or diarrhea. Duration: Day(s): (4) Location: Reports: Head, Abdomen - Related Data Allergies Allergy/AdvReac Type Severity Reaction Status Date / Time Latex, Natural Rubber Allergy Swelling Verified 07/16/18 15:15 morphine Allergy Hives Verified 07/16/18 15:15 Home Meds: Home Meds Escitalopram [Lexapro] 20 mg PO BEDTIME 10/10/16 [History] tiZANidine [Zanaflex] 1 tab PO ASDIRECTED 04/24/18 [History] Acetaminophen/HYDROcodone [Salem 325-5 MG] 1 - 2 tab PO Q6H PRN #15 tab [Rx] Past Medical History HEENT History: Reports: Impaired Vision Respiratory History: Reports: Asthma, Other (See Below) Other Respiratory History: Smoker. Gastrointestinal History: Reports: Cholelithiasis, Other (See Below) Other Gastrointestinal History: colitis Genitourinary History: Reports: Renal Calculus, UTI, Recurrent Other Genitourinary History: Bladder surgery. 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 Musculoskeletal History: Reports: Arthritis, Fibromyalgia, Other (See Below) Other Musculoskeletal History: Carpal tunnel R wrist. Sciatica. Neurological History: Reports: Concussion, Migraines Psychiatric History: Reports: Anxiety, Depression, Psych Hospitalization(s) Endocrine/Metabolic History: Reports: Obesity/BMI 30+ Hematologic History: Reports: Anemia, Iron Deficiency Oncologic (Cancer) History: Reports: Uterine - Infectious Disease History Infectious Disease History: Reports: Chicken Pox, Measles - Past Surgical History HEENT Surgical History: Reports: Oral Surgery, Tonsillectomy Respiratory Surgical History: Reports: None GI Surgical History: Reports: Appendectomy, Cholecystectomy Female Surgical History: Reports: Hysterectomy, Tubal Ligation, Other (See Below) (bladder mesh) Endocrine Surgical History: Reports: None Neurological Surgical History: Reports: None Musculoskeletal Surgical History: Reports: Arthroscopic Knee Oncologic Surgical History: Reports: Other (See Below) Social & Family History - Family History Family Medical History: Noncontributory - Tobacco Use Smoking Status *Q: Current Every Day Smoker Years of Tobacco use: 22 Packs/Tins Daily: 1 Used Tobacco, but Quit: No Second Hand Smoke Exposure: Yes - Caffeine Use Caffeine Use: Reports: Energy Drinks, Soda - Alcohol Use Alcohol Use History: No - Recreational Drug Use Recreational Drug Use: Yes Drug Use in Last 12 Months: Yes Recreational Drug Type: Reports: Marijuana/Hashish Recreational Drug Use Frequency: Daily - Living Situation & Occupation Living situation: Reports: , with Family Occupation: Unemployed ED ROS GENERAL - Review of Systems Review Of Systems: ROS reveals no pertinent complaints other than HPI. ED EXAM, GENERAL - Physical Exam Exam: See Below Exam Limited By: No Limitations General Appearance: Alert, WD/WN, No Apparent Distress Eye Exam: Bilateral Eye: EOMI, PERRL Ears: Normal External Exam Nose: Normal Inspection Throat/Mouth: No Airway Compromise Head: Atraumatic, Normocephalic Neck: Supple Respiratory/Chest: No Respiratory Distress, Lungs Clear, Normal Breath Sounds Cardiovascular: Regular Rate, Rhythm, No Gallop, No Murmur GI/Abdominal: Normal Bowel Sounds, Soft, No Distention, Tender (LLQ) Rectal (Female) Exam: Deferred Back Exam: CVA Tenderness (L) Extremities: Normal Range of Motion Neurological: Alert, Oriented, Normal Cognition, No Motor/Sensory Deficits Psychiatric: Normal Affect, Normal Mood Skin Exam: Warm, Dry, Intact, No Rash Course - Vital Signs Last Recorded V/S: Last Vital Signs Temp 36.8 C 07/16/18 15:08 Pulse 87 07/16/18 15:08 Resp BP 123/76 07/16/18 15:08 Pulse Ox 96 07/16/18 15:08 - Orders/Labs/Meds Orders: Active Orders 24 hr Category Date Time Status Abdomen Pelvis w Cont [CT] Stat Exams 07/16/18 16:56 Taken Head wo Cont [CT] Stat Exams 07/16/18 16:56 Taken Sodium Chloride 0.9% [Saline Flush] Med 07/16/18 15:13 Active 10 ml FLUSH ASDIRECTED PRN Saline Lock Insert [OM.PC] Routine Oth 07/16/18 15:13 Ordered Medication Orders Sodium Chloride (Saline Flush) 10 ml FLUSH ASDIRECTED PRN PRN Reason: Keep Vein Open Labs: Laboratory Tests 07/16/18 07/16/18 07/16/18 Range/Units 15:12 15:21 15:21 WBC 9.6 (4.5-12.0) X10-3/uL RBC 5.60 H (3.23-5.20) x10(6)uL Hgb 11.9 (11.5-15.5) g/dL Hct 36.0 (30.0-51.3) % MCV 64.2 L (80-96) fL MCH 21.2 L (27.7-33.6) pg MCHC 32.9 (32.2-35.4) g/dL RDW 15.7 H (11.5-15.5) % Plt Count 235 (125-369) X10(3)uL MPV 8.1 (7.4-10.4) fL Neut % (Auto) 75.4 (46-82) % Lymph % (Auto) 18.4 (13-37) % [place] % (Auto) 4.9 (4-12) % Eos % (Auto) 1 (1.0-5.0) % Baso % (Auto) 0 (0-2) % Neut # (Auto) 7.2 (1.6-8.3) # Lymph # (Auto) 1.8 (0.6-5.0) # Blount # (Auto) 0.5 (0.0-1.3) # Eos # (Auto) 0.1 (0.0-0.8) # Baso # (Auto) 0.0 (0.0-0.2) # Sodium 138 (135-145) mmol/L Potassium 4.1 (3.5-5.3) mmol/L Chloride 104 (100-110) mmol/L Carbon Dioxide 26 (21-32) mmol/L BUN 11 (7-18) mg/dL Creatinine 0.7 (0.55-1.02) mg/dL Est Cr Clr Drug Dosing TNP Estimated GFR (MDRD) > 60 (>60) BUN/Creatinine Ratio 15.7 (9-20) Glucose 94 (80-116) mg/dL Calcium 8.5 L (8.6-10.2) mg/dL Total Bilirubin 0.3 (0.1-1.3) mg/dL AST 14 (5-25) IU/L ALT 17 (12-36) U/L Alkaline Phosphatase 83 (56-112) IU/L Total Protein 7.5 (6.0-8.0) g/dL Albumin 3.2 L (3.5-5.2) g/dL Globulin 4.3 g/dL Albumin/Globulin Ratio 0.7 Amylase 87 (25-115) U/L Urine Color Yellow (YELLOW) Urine Appearance Clear (CLEAR) Urine pH 6.0 (5.0-6.5) Ur Specific [place] 1.015 (1.010-1.025) Urine Protein Negative (NEGATIVE) mg/dL Urine Glucose (UA) Normal (NEGATIVE) mg/dL Urine Ketones Negative (NEGATIVE) mg/dL Urine Occult Blood Negative (NEGATIVE) Urine Nitrite Negative (NEGATIVE) Urine Bilirubin Negative (NEGATIVE) Urine Urobilinogen Normal (NEGATIVE) mg/dL Ur Leukocyte Esterase Negative (NEGATIVE) Urine RBC 0-5 (0) Urine WBC 0-5 (0) Ur Squamous Epith Cells Occasional (NS,R,O) Urine Bacteria Few H (NS) Meds: Medications Generic Name Dose Route Start Last Admin Trade Name Freq PRN Reason Stop Dose Admin Sodium Chloride 10 ml 07/16/18 15:13 Saline Flush FLUSH ASDIRECTED PRN Keep Vein Open Discontinued Medications Generic Name Dose Route Start Last Admin Trade Name Freq PRN Reason Stop Dose Admin Hydromorphone HCl 1 mg 07/16/18 15:14 07/16/18 16:02 Dilaudid IVPUSH 07/16/18 15:15 1 mg ONETIME ONE Administration Sodium Chloride 1,000 mls @ 999 mls/hr 07/16/18 15:13 07/16/18 16:01 Normal Saline IV 07/16/18 16:13 999 mls/hr .BOLUS ONE Administration Iopamidol 100 ml 07/16/18 16:57 07/16/18 17:14 Isovue-370 (76%) IV 07/16/18 16:58 100 ml . DIRECTED ONE Administration Ondansetron HCl 4 mg 07/16/18 15:14 07/16/18 16:01 Zofran IVPUSH 07/16/18 15:15 4 mg ONETIME ONE Administration - Radiology Interpretation Free Text/Narrative:: CT Head: NAD CT Abd/Pelvis w/ IV contrast: possible tiny dermoid in the left ovary, otherwise normal - Re-Assessments/Exams Free Text/Narrative Re-Assessment/Exam: 07/16/18 17:53 Symptoms have improved Departure - Departure Time of Disposition: 17:54 Disposition: Home, Self-Care 01 Condition: Good Clinical Impression: Abdominal pain Qualifiers: Abdominal location: left lower quadrant Qualified Code(s): R10.32 - Left lower quadrant pain Cephalgia Qualifiers: Headache type: unspecified Headache chronicity pattern: acute headache Intractability: not intractable Qualified Code(s): R51 - Headache - Discharge Information *PRESCRIPTION DRUG MONITORING PROGRAM REVIEWED*: Yes *COPY OF PRESCRIPTION DRUG MONITORING REPORT IN PATIENT CHAITANYA: No Prescriptions: Acetaminophen/HYDROcodone [Salem 325-5 MG] 1 - 2 tab PO Q6H PRN #15 tab PRN Reason: Pain Instructions: General Headache Without Cause, Abdominal Pain, Adult Referrals: Sonny Phipps MD [Primary Care Provider] - Forms: ED Department Discharge Additional Instructions: Fill prescription for [place] and take as directed. Rest, drink plenty of fluids. Follow up with your primary physician in 2-3 days. Return to the ER if symptoms worsen. - My Orders Last 24 Hours: My Active Orders 07/16/18 15:13 Sodium Chloride 0.9% [Saline Flush] 10 ml FLUSH ASDIRECTED PRN Saline Lock Insert [OM.PC] Routine 07/16/18 16:56 Abdomen Pelvis w Cont [CT] Stat Head wo Cont [CT] Stat - Assessment/Plan Last 24 Hours: My Active Orders 07/16/18 15:13 Sodium Chloride 0.9% [Saline Flush] 10 ml FLUSH ASDIRECTED PRN Saline Lock Insert [OM.PC] Routine 07/16/18 16:56 Abdomen Pelvis w Cont [CT] Stat Head wo Cont [CT] Stat
[2018-07-16] MEDS ORDERED: Iopamidol 755 Mg/ML 100 ML Bottle IV ONE (16:57)
[2018-07-16 18:49] VITALS: BP 118/74
== END 2018-07-16 18:10 | disposition home or self-care (01) ==
LOC: FB.ED 14:43
DX: R10.32 Left lower quadrant pain (principal); R51 Headache; E66.9 Obesity, unspecified; F17.210 Nicotine dependence, cigarettes, uncomplicated; Z91.040 Latex allergy status; Z88.5 Allergy status to narcotic agent
CPT/HCPCS: 36415; 70450; 74177; 80053; 81001; 82150; 85025; 96361; 96374; 96375; 99284; J1170; J2405; J7030; Q9967

== ENCOUNTER 2018-07-17 01:08 | Emergency (ER) | payer MEDICAID, MEDICARE ==
[2013-07-11 21:49] VITALS: BP 124/90
[2018-07-17] MEDS ORDERED: HYDROmorphone 2 MG/ML SDV IM ONE (01:20)
[2018-07-17] MEDS ORDERED: Ondansetron 4 MG/2 ML SDV IM ONE (01:20)
--- NOTE | 2018-07-17 01:27 | EDM.PDOC ---
ED HPI GENERAL MEDICAL PROBLEM - General Chief Complaint: Headache Stated Complaint: HEADACHE Time Seen by Provider: 07/17/18 01:21 Source of Information: Reports: Patient History Limitations: Reports: No Limitations - History of Present Illness INITIAL COMMENTS - FREE TEXT/NARRATIVE: Awoke with generalized headache and vomiting. History of migraine, feels similar to previous migraines. Treated in the ED earlier tonight for abdominal pain and headache, work up unremarkable. Onset: Today - Related Data Allergies Allergy/AdvReac Type Severity Reaction Status Date / Time Latex, Natural Rubber Allergy Swelling Verified 07/16/18 15:15 morphine Allergy Hives Verified 07/16/18 15:15 Home Meds: Home Meds Escitalopram [Lexapro] 20 mg PO BEDTIME 10/10/16 [History] tiZANidine [Zanaflex] 1 tab PO ASDIRECTED 04/24/18 [History] Acetaminophen/HYDROcodone [[place] 325-5 MG] 1 - 2 tab PO Q6H PRN #15 tab [Rx] Past Medical History - Past Health History Medical/Surgical History: Denies Medical/Surgical History HEENT History: Reports: Impaired Vision Respiratory History: Reports: Asthma, Other (See Below) Other Respiratory History: Smoker. Gastrointestinal History: Reports: Cholelithiasis, Other (See Below) Other Gastrointestinal History: colitis Genitourinary History: Reports: Renal Calculus, UTI, Recurrent Other Genitourinary History: Bladder surgery. 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 Musculoskeletal History: Reports: Arthritis, Fibromyalgia, Other (See Below) Other Musculoskeletal History: Carpal tunnel R wrist. Sciatica. Neurological History: Reports: Concussion, Migraines Psychiatric History: Reports: Anxiety, Depression, Psych Hospitalization(s) Endocrine/Metabolic History: Reports: Obesity/BMI 30+ Hematologic History: Reports: Anemia, Iron Deficiency Oncologic (Cancer) History: Reports: Uterine - Infectious Disease History Infectious Disease History: Reports: Chicken Pox, Measles - Past Surgical History HEENT Surgical History: Reports: Oral Surgery, Tonsillectomy Respiratory Surgical History: Reports: None GI Surgical History: Reports: Appendectomy, Cholecystectomy Female Surgical History: Reports: Hysterectomy, Tubal Ligation, Other (See Below) (bladder mesh) Endocrine Surgical History: Reports: None Neurological Surgical History: Reports: None Musculoskeletal Surgical History: Reports: Arthroscopic Knee Oncologic Surgical History: Reports: Other (See Below) Social & Family History - Family History Family Medical History: Noncontributory - Caffeine Use Caffeine Use: Reports: Energy Drinks, Soda - Living Situation & Occupation Living situation: Reports: , with Family Occupation: Unemployed ED ROS GENERAL - Review of Systems Review Of Systems: ROS reveals no pertinent complaints other than HPI. - Physical Exam Exam: See Below Exam Limited By: No Limitations General Appearance: Alert, WD/WN, No Apparent Distress Eye Exam: Bilateral Eye: EOMI, PERRL Ears: Normal External Exam Nose: Normal Inspection Throat/Mouth: No Airway Compromise Head Exam: Atraumatic, Normocephalic Neck: Normal Inspection, Supple, Full Range of Motion Respiratory/Chest: No Respiratory Distress, Lungs Clear, Normal Breath Sounds Cardiovascular: Regular Rate, Rhythm, No Murmur Neuro Exam (Abbreviated): Alert, Oriented, Normal Cognition, No Motor/Sensory Deficits Back Exam: Full Range of Motion Extremities: Normal Range of Motion Psychiatric: Normal Affect, Normal Mood Skin Exam: Warm, Dry, Intact Course - Vital Signs Last Recorded V/S: Last Vital Signs Temp 36.5 C 07/17/18 01:10 Pulse Resp 18 07/17/18 01:10 BP 135/96 H 07/17/18 01:10 Pulse Ox 99 07/17/18 01:10 - Orders/Labs/Meds Meds: Medications Discontinued Medications Generic Name Dose Route Start Last Admin Trade Name Ironq PRN Reason Stop Dose Admin Hydromorphone HCl 1 mg 07/17/18 01:20 07/17/18 01:30 Dilaudid IM 07/17/18 01:21 1 mg ONETIME ONE Administration Ondansetron HCl 4 mg 07/17/18 01:20 07/17/18 01:30 Zofran IM 07/17/18 01:21 4 mg ONETIME ONE Administration - Re-Assessments/Exams Free Text/Narrative Re-Assessment/Exam: 07/17/18 02:08 Symptoms improved after Dilaudid 1mg IM and Zofran 4mg IM. Departure - Departure Time of Disposition: 02:09 Disposition: Home, Self-Care 01 Condition: Good Clinical Impression: Migraine Qualifiers: Migraine type: unspecified Status migrainosus presence: without status migrainosus Intractability: not intractable Qualified Code(s): G43.909 - Migraine, unspecified, not intractable, without status migrainosus - Discharge Information *PRESCRIPTION DRUG MONITORING PROGRAM REVIEWED*: No *COPY OF PRESCRIPTION DRUG MONITORING REPORT IN PATIENT CHAITANYA: Not Applicable Instructions: Migraine Headache, [id number] Forms: ED Department Discharge Additional Instructions: Rest, fluids, follow up with your primary physician in 2-3 days. Return to the ER as needed.
[2018-07-17 03:48] VITALS: BP 127/86
== END 2018-07-17 02:23 | disposition home or self-care (01) ==
LOC: FB.ED 01:08
DX: G43.909 Migraine, unspecified, not intractable, without status migrainosus (principal); E66.9 Obesity, unspecified; Z88.5 Allergy status to narcotic agent; Z91.040 Latex allergy status
CPT/HCPCS: 96372; 99283; J1170; J2405

== ENCOUNTER 2018-11-28 16:25 | Emergency (ER) | payer MEDICAID ==
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
[2018-11-29 02:11] VITALS: BP 144/89
== END 2018-11-28 17:51 | disposition home or self-care (01) ==
LOC: FB.ED 16:25
DX: S06.0X0A Concussion without loss of consciousness, initial encounter (principal); F41.9 Anxiety disorder, unspecified; F32.9 Major depressive disorder, single episode, unspecified; Z79.899 Other long term (current) drug therapy; Z91.040 Latex allergy status; Z88.5 Allergy status to narcotic agent; W23.0XXA Caught, crushed, jammed, or pinched between moving objects, initial encounter
CPT/HCPCS: 99283

== ENCOUNTER 2018-12-21 16:50 | Emergency (ER) | payer MEDICAID ==
[2018-12-21 17:14] VITALS: BP 126/77
[2018-12-21] MEDS ORDERED: Sodium Chloride 0.9% 1,000 ML IV SCH (17:15)
[2018-12-21] MEDS ORDERED: diphenhydrAMINE 50 MG/ML SDV IVPUSH ONE (17:19)
[2018-12-21] MEDS ORDERED: Ketorolac 30 MG/ML SDV IVPUSH ONE (17:19)
[2018-12-21] MEDS ORDERED: Metoclopramide Oral Soln 10 MG/10 ML UD Cup PO ONE (17:22)
[2018-12-21] MEDS ORDERED: Ketorolac 60 MG/2 ML SDV IM ONE (17:22)
[2018-12-21] MEDS ORDERED: diphenhydrAMINE 50 MG Cap PO ONE (17:23)
[2018-12-21] MEDS ORDERED: Metoclopramide 10 MG Tab PO ONE (17:37)
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
== END 2018-12-21 18:07 | disposition home or self-care (01) ==
LOC: FB.ED 16:50
DX: G44.209 Tension-type headache, unspecified, not intractable (principal); J45.909 Unspecified asthma, uncomplicated; F17.210 Nicotine dependence, cigarettes, uncomplicated; Z91.040 Latex allergy status; Z88.5 Allergy status to narcotic agent; Z79.899 Other long term (current) drug therapy
CPT/HCPCS: 96372; 99283; A9270; J1885

== ENCOUNTER 2019-01-16 15:28 | Emergency (ER) | payer MEDICAID ==
--- NOTE | 2019-01-16 15:55 | EDM.PDOC ---
ED HPI GENERAL MEDICAL PROBLEM - General Chief Complaint: Flank Pain Stated Complaint: LOWER ABD PAIN Time Seen by Provider: 01/16/19 15:45 - History of Present Illness INITIAL COMMENTS - FREE TEXT/NARRATIVE: pt comes c/o left sided sever abd pain , nonradiating, constant since 2 PM this afternoon / 2 hrs, denies fever, chills urinary sx, changes with her BMs, or any other associated sx. pt states she has been having similar pain on and off X 2 weeks but not as bad as today. pt indicate Hx of appendectomy, cholecystectomy, hysterectomy and chronic back pain. left side abd pain Pain Score (Numeric/FACES): 10 - Related Data Allergies Allergy/AdvReac Type Severity Reaction Status Date / Time Latex, Natural Rubber Allergy Swelling Verified 01/16/19 15:39 morphine Allergy Hives Verified 01/16/19 15:39 Home Meds: Home Meds Escitalopram [Lexapro] 20 mg PO DAILY 10/10/16 [History] Metaxalone 800 mg PO TID 10/07/18 [History] traZODone HCl [Trazodone HCl] 50 mg PO BEDTIME 01/16/19 [History] Past Medical History - Past Health History Medical/Surgical History: Denies Medical/Surgical History HEENT History: Reports: Impaired Vision Respiratory History: Reports: Asthma, Other (See Below) Other Respiratory History: Smoker. Gastrointestinal History: Reports: Cholelithiasis, Other (See Below) Other Gastrointestinal History: colitis Genitourinary History: Reports: Renal Calculus, UTI, Recurrent Other Genitourinary History: Bladder surgery. SEASONER History: Reports: Other SEASONER History: . Musculoskeletal History: Reports: Arthritis, Fibromyalgia, Other (See Below) Other Musculoskeletal History: Carpal tunnel R wrist. Sciatica. Neurological History: Reports: Concussion, Migraines Psychiatric History: Reports: Anxiety, Depression, Psych Hospitalization(s), Suicide Attempt Endocrine/Metabolic History: Reports: Obesity/BMI 30+ Hematologic History: Reports: Anemia, Iron Deficiency Oncologic (Cancer) History: Reports: Uterine - Infectious Disease History Infectious Disease History: Reports: Chicken Pox - Past Surgical History HEENT Surgical History: Reports: Adenoidectomy, Oral Surgery, Tonsillectomy Respiratory Surgical History: Reports: None GI Surgical History: Reports: Appendectomy, Cholecystectomy Female Surgical History: Reports: Hysterectomy, Tubal Ligation, Other (See Below) Other Female Surgeries/Procedures: bladder repair with mesh Endocrine Surgical History: Reports: None Neurological Surgical History: Reports: None Musculoskeletal Surgical History: Reports: Arthroscopic Knee Oncologic Surgical History: Reports: Other (See Below) Social & Family History - Family History Family Medical History: Noncontributory - Caffeine Use Caffeine Use: Reports: Energy Drinks, Soda, Tea - Living Situation & Occupation Living situation: Reports: , with Family Occupation: Unemployed ED ROS GENERAL - Review of Systems Review Of Systems: See Below Constitutional: Denies: Fever, Chills HEENT: Reports: No Symptoms Respiratory: Reports: No Symptoms Cardiovascular: Reports: No Symptoms GI/Abdominal: Reports: Abdominal Pain. Denies: Nausea, Vomiting Musculoskeletal: Reports: No Symptoms Neurological: Reports: No Symptoms ED EXAM, GENERAL - Physical Exam Exam: See Below Exam Limited By: No Limitations General Appearance: Alert, Mild Distress, Moderate Distress Throat/Mouth: Normal Inspection, Normal Lips, Normal Teeth, Normal Gums, Normal Oropharynx, Normal Voice, No Airway Compromise Respiratory/Chest: No Respiratory Distress, Lungs Clear, Normal Breath Sounds, No Accessory Muscle Use, Chest Non-Tender Cardiovascular: Normal Peripheral Pulses, Regular Rate, Rhythm, No Edema, No Gallop, No JVD, No Murmur, No Rub GI/Abdominal: Soft, Tender, Other (tender all across left side of abd , no guarding or rebound, no CVAT. ). No: Guarding, Rebound Extremities: Normal Inspection Course - Vital Signs Text/Narrative:: labs and xray results were explained to pt, pt refused toradol. pt report that pain has subsided . i do feel this cramping was secondary to constipation, discussed with pt constipation mng also mag citrate today and asked her to follow with PCP if this continue to be a recurrent problem . Last Recorded V/S: Last Vital Signs Temp 36.9 C 01/16/19 15:28 Pulse 98 01/16/19 15:28 Resp 18 01/16/19 15:28 BP 144/96 H 01/16/19 15:28 Pulse Ox 100 01/16/19 15:28 - Orders/Labs/Meds Orders: Active Orders 24 hr Category Date Time Status Abdomen 2V AP Flat Upright [CR] Stat Exams 01/16/19 15:56 Taken Ketorolac [Toradol] Med 01/16/19 16:38 Once 60 mg IM ONETIME ONE Labs: Laboratory Tests 01/16/19 01/16/19 01/16/19 Range/Units 16:00 16:00 16:00 WBC 11.0 (4.5-12.0) X10-3/uL RBC 5.87 H (3.23-5.20) x10(6)uL Hgb 12.2 (11.5-15.5) g/dL Hct 38.8 (30.0-51.3) % MCV 66.1 L (80-96) fL MCH 20.8 L (27.7-33.6) pg MCHC 31.4 L (32.2-35.4) g/dL RDW 16.2 H (11.5-15.5) % Plt Count 244 (125-369) X10(3)uL MPV 8.2 (7.4-10.4) fL Neut % (Auto) 74.5 (46-82) % Lymph % (Auto) 19.0 (13-37) % Cecil % (Auto) 4.9 (4-12) % Eos % (Auto) 1 (1.0-5.0) % Baso % (Auto) 0 (0-2) % Neut # (Auto) 8.3 (1.6-8.3) # Lymph # (Auto) 2.1 (0.6-5.0) # Cecil # (Auto) 0.5 (0.0-1.3) # Eos # (Auto) 0.1 (0.0-0.8) # Baso # (Auto) 0.0 (0.0-0.2) # Sodium 140 (135-145) mmol/L Potassium 4.1 (3.5-5.3) mmol/L Chloride 106 (100-110) mmol/L Carbon Dioxide 27 (21-32) mmol/L BUN 13 (7-18) mg/dL Creatinine 0.7 (0.55-1.02) mg/dL Est Cr Clr Drug Dosing 84.49 mL/min Estimated GFR (MDRD) > 60 (>60) BUN/Creatinine Ratio 18.6 (9-20) Glucose 101 (80-116) mg/dL Calcium 8.5 L (8.6-10.2) mg/dL Total Bilirubin 0.3 (0.1-1.3) mg/dL AST 13 (5-25) IU/L ALT 21 D (12-36) U/L Alkaline Phosphatase 78 (56-112) IU/L Total Protein 7.4 (6.0-8.0) g/dL Albumin 3.5 (3.5-5.2) g/dL Globulin 3.9 g/dL Albumin/Globulin Ratio 0.9 Amylase 77 (25-115) U/L Urine Color Yellow (YELLOW) Urine Appearance Clear (CLEAR) Urine pH 5.0 (5.0-6.5) Ur Specific Camilla 1.020 (1.010-1.025) Urine Protein Negative (NEGATIVE) mg/dL Urine Glucose (UA) Normal (NORMAL) mg/dL Urine Ketones Negative (NEGATIVE) mg/dL Urine Occult Blood Negative (NEGATIVE) Urine Nitrite Negative (NEGATIVE) Urine Bilirubin Negative (NEGATIVE) Urine Urobilinogen Normal (NEGATIVE) mg/dL Ur Leukocyte Esterase Negative (NEGATIVE) Urine RBC 0-5 (0-5) Urine WBC 0-5 (0-5) Ur Squamous Epith Cells Many H (NS,R,O) Urine Bacteria Moderate H (NS) Departure - Departure Time of Disposition: 16:44 Disposition: Home, Self-Care 01 Clinical Impression: Constipation Abdominal pain Qualifiers: Abdominal location: left lower quadrant Qualified Code(s): R10.32 - Left lower quadrant pain - Discharge Information Referrals: Sonny Phipps MD [Primary Care Provider] - Forms: ED Department Discharge - My Orders Last 24 Hours: My Active Orders 01/16/19 15:56 Abdomen 2V AP Flat Upright [CR] Stat 01/16/19 16:38 Ketorolac [Toradol] 60 mg IM ONETIME ONE - Assessment/Plan Last 24 Hours: My Active Orders 01/16/19 15:56 Abdomen 2V AP Flat Upright [CR] Stat 01/16/19 16:38 Ketorolac [Toradol] 60 mg IM ONETIME ONE
[2019-01-16] MEDS ORDERED: Ketorolac 60 MG/2 ML SDV IM ONE (16:38)
[2019-01-16 16:56] VITALS: BP 131/91
--- NOTE | 2019-01-17 10:47 | CR ---
INDICATION: Abdominal pain. ABDOMEN: Four images of the abdomen were obtained in supine and upright projections, 01/16/19, and compared with 01/15/19 from the clinic. Clips compatible with cholecystectomy are again noted. The pattern of gas and feces is nonspecific without evidence of free air or obstruction. Scattered gas is noted throughout most of the colon. No definite mass lesions, organomegaly, or pathologic calcifications were identified. IMPRESSION: Nonacute abdomen. MTDD
== END 2019-01-16 16:54 | disposition home or self-care (01) ==
LOC: FB.ED 15:28
DX: K59.00 Constipation, unspecified (principal); F41.9 Anxiety disorder, unspecified; F32.9 Major depressive disorder, single episode, unspecified; Z79.899 Other long term (current) drug therapy; Z88.5 Allergy status to narcotic agent; Z91.040 Latex allergy status
CPT/HCPCS: 36415; 74019; 80053; 81001; 82150; 85025; 99284-25

== ENCOUNTER 2019-01-18 18:23 | Emergency (ER) | payer MEDICAID ==
[2019-01-18 18:50] VITALS: BP 145/95
[2019-01-18] MEDS ORDERED: Iopamidol 755 Mg/ML 100 ML Bottle IV ONE (19:13)
[2019-01-18] MEDS ORDERED: Diatrizoate Meglumine/Diatrizoate Sodium 37% 30 ML Bottle PO SCH (19:15)
--- NOTE | 2019-01-18 19:22 | EDM.PDOC ---
ED HPI GENERAL MEDICAL PROBLEM - General Chief Complaint: Abdominal Pain Stated Complaint: ABD PAIN Time Seen by Provider: 01/18/19 18:50 Source of Information: Reports: Patient, Old Records History Limitations: Reports: No Limitations - History of Present Illness INITIAL COMMENTS - FREE TEXT/NARRATIVE: Umesh returns to [facility] ED with ongoing sxs of LLQ, characterized as intermittently sharp, fullness and crampy at times. Pain is nonradiating, associated with occasional nausea, but no vomiting. She was seen in the ED 2 days ago, medical work up including plain films of abdomen suggestive of constipation, and she took citrate of mag with results, but no change in sxs. Left abdominal Pain Score (Numeric/FACES): 9 - Related Data Allergies Allergy/AdvReac Type Severity Reaction Status Date / Time Latex, Natural Rubber Allergy Swelling Verified 01/18/19 18:36 morphine Allergy Hives Verified 01/18/19 18:36 Home Meds: Home Meds Escitalopram [Lexapro] 20 mg PO DAILY 10/10/16 [History] Metaxalone 800 mg PO TID 10/07/18 [History] traZODone HCl [Trazodone HCl] 50 mg PO BEDTIME 01/16/19 [History] Past Medical History - Past Health History Medical/Surgical History: Denies Medical/Surgical History HEENT History: Reports: Impaired Vision Respiratory History: Reports: Asthma, Other (See Below) Other Respiratory History: Smoker. Gastrointestinal History: Reports: Cholelithiasis, Other (See Below) Other Gastrointestinal History: colitis Genitourinary History: Reports: Renal Calculus, UTI, Recurrent Other Genitourinary History: Bladder surgery. 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 Musculoskeletal History: Reports: Arthritis, Fibromyalgia, Other (See Below) Other Musculoskeletal History: Carpal tunnel R wrist. Sciatica. Neurological History: Reports: Concussion, Migraines Psychiatric History: Reports: Anxiety, Depression, Psych Hospitalization(s), Suicide Attempt Endocrine/Metabolic History: Reports: Obesity/BMI 30+ Hematologic History: Reports: Anemia, Iron Deficiency Oncologic (Cancer) History: Reports: Uterine - Infectious Disease History Infectious Disease History: Reports: Chicken Pox - Past Surgical History HEENT Surgical History: Reports: Adenoidectomy, Oral Surgery, Tonsillectomy Respiratory Surgical History: Reports: None GI Surgical History: Reports: Appendectomy, Cholecystectomy Female Surgical History: Reports: Hysterectomy, Tubal Ligation, Other (See Below) Other Female Surgeries/Procedures: bladder repair with mesh Endocrine Surgical History: Reports: None Neurological Surgical History: Reports: None Musculoskeletal Surgical History: Reports: Arthroscopic Knee Oncologic Surgical History: Reports: Other (See Below) Social & Family History - Family History Family Medical History: Noncontributory - Tobacco Use Smoking Status *Q: Current Every Day Smoker Years of Tobacco use: 20 Packs/Tins Daily: 0.5 - Caffeine Use Caffeine Use: Reports: Soda - Recreational Drug Use Recreational Drug Use: Yes Recreational Drug Type: Reports: Marijuana/Hashish Recreational Drug Use Frequency: Daily - Living Situation & Occupation Living situation: Reports: , with Family Occupation: Unemployed ED ROS GENERAL - Review of Systems Review Of Systems: See Below Constitutional: Reports: No Symptoms HEENT: Reports: No Symptoms Respiratory: Reports: No Symptoms Cardiovascular: Reports: No Symptoms Endocrine: Reports: No Symptoms GI/Abdominal: Reports: Abdominal Pain, Nausea : Reports: No Symptoms Musculoskeletal: Reports: No Symptoms Skin: Reports: No Symptoms Neurological: Reports: No Symptoms Psychiatric: Reports: Anxiety Hematologic/Lymphatic: Reports: No Symptoms Immunologic: Reports: No Symptoms ED EXAM, GI/ABD - Physical Exam Exam: See Below Exam Limited By: No Limitations General Appearance: Alert, WD/WN, No Apparent Distress, Anxious, Obese Eyes: Bilateral: Normal Appearance, EOMI Ears: Normal External Exam Nose: Normal Inspection Throat/Mouth: Normal Inspection, Normal Lips, Normal Gums, Normal Oropharynx, Normal Voice, No Airway Compromise Head: Normocephalic Neck: Normal Inspection, Supple, Non-Tender, Full Range of Motion Respiratory/Chest: Lungs Clear, Normal Breath Sounds Cardiovascular: Regular Rate, Rhythm, No Murmur GI/Abdominal Exam: Normal Bowel Sounds, Soft, No Organomegaly, No Distention, No Abnormal Bruit, No Mass, Tender (LLQ) (Female) Exam: Deferred Rectal (Female) Exam: Deferred Back Exam: Normal Inspection Extremities: Normal Inspection Neurological: Alert, Oriented, CN II-XII Intact, No Motor/Sensory Deficits Psychiatric: Normal Affect, Anxious Skin Exam: Warm, Dry, Intact, Normal Color, No Rash Lymphatic: No Adenopathy Course - Vital Signs Text/Narrative:: Following assessment, follow up labs noted Hgb 11.7, WBC 12,200, plts adequate, ESR 28 mm/hr, crp 1.5, remaining lab studies baseline. A follow up ABD-PELVIC CT w contrast was unchanged from 2018. Last Recorded V/S: Last Vital Signs Temp 36.6 C 01/18/19 18:35 Pulse 94 01/18/19 18:35 Resp 20 01/18/19 18:35 BP 145/95 H 01/18/19 18:35 Pulse Ox 100 01/18/19 18:35 - Orders/Labs/Meds Orders: Active Orders 24 hr Category Date Time Status Abdomen Pelvis w Cont [CT] Stat Exams 01/18/19 18:56 Taken Diatrizoate Eloina/Diatrizoate Na [Gastrografin 37%] Med 01/18/19 19:15 Active 30 ml PO . DIRECTED Medication Orders Diatrizoate Meglum/Diatrizoate Sod (Gastrografin 37%) 30 ml PO . DIRECTED VINAY Last Admin: 01/18/19 19:56 Dose: 30 ml Labs: Laboratory Tests 01/18/19 01/18/19 01/18/19 Range/Units 19:10 19:10 19:10 WBC 12.2 H (4.5-12.0) X10-3/uL RBC 5.61 H (3.23-5.20) x10(6)uL Hgb 11.5 (11.5-15.5) g/dL Hct 36.6 (30.0-51.3) % MCV 65.3 L (80-96) fL MCH 20.5 L (27.7-33.6) pg MCHC 31.4 L (32.2-35.4) g/dL RDW 16.3 H (11.5-15.5) % Plt Count 230 (125-369) X10(3)uL MPV 8.3 (7.4-10.4) fL Neut % (Auto) 73.3 (46-82) % Lymph % (Auto) 20.6 (13-37) % Wheeler % (Auto) 4.8 (4-12) % Eos % (Auto) 1 (1.0-5.0) % Baso % (Auto) 0 (0-2) % Neut # (Auto) 9.0 H (1.6-8.3) # Lymph # (Auto) 2.5 (0.6-5.0) # Wheeler # (Auto) 0.6 (0.0-1.3) # Eos # (Auto) 0.1 (0.0-0.8) # Baso # (Auto) 0.0 (0.0-0.2) # ESR 28 H (0-20) mm/hr Sodium 141 (135-145) mmol/L Potassium 3.9 (3.5-5.3) mmol/L Chloride 103 (100-110) mmol/L Carbon Dioxide 30 (21-32) mmol/L BUN 14 (7-18) mg/dL Creatinine 0.8 (0.55-1.02) mg/dL Est Cr Clr Drug Dosing 77.33 mL/min Estimated GFR (MDRD) > 60 (>60) BUN/Creatinine Ratio 17.5 (9-20) Glucose 91 (80-116) mg/dL Calcium 8.6 (8.6-10.2) mg/dL C-Reactive Protein 1.5 H (0.5-0.9) mg/dL Meds: Medications Generic Name Dose Route Start Last Admin Trade Name Freq PRN Reason Stop Dose Admin Diatrizoate Meglum/Diatrizoate Sod 30 ml 01/18/19 19:15 01/18/19 19:56 Gastrografin 37% PO 30 ml . DIRECTED VINAY Administration Discontinued Medications Generic Name Dose Route Start Last Admin Trade Name Freq PRN Reason Stop Dose Admin Iopamidol 100 ml 01/18/19 19:13 01/18/19 19:56 Isovue-370 (76%) IV 01/18/19 19:14 100 ml . DIRECTED ONE Administration Departure - Departure Time of Disposition: 20:28 Disposition: Home, Self-Care 01 Condition: Fair Clinical Impression: Abdominal pain - Discharge Information *PRESCRIPTION DRUG MONITORING PROGRAM REVIEWED*: Not Applicable *COPY OF PRESCRIPTION DRUG MONITORING REPORT IN PATIENT CHAITANYA: Not Applicable Referrals: Sonny Phipps MD [Primary Care Provider] - Forms: ED Department Discharge - Problem List & Annotations (1) Abdominal pain SNOMED Code(s): 21068682 Code(s): R10.9 - UNSPECIFIED ABDOMINAL PAIN Status: Acute Current Visit: Yes Annotation/Comment:: Abdominal pain NOS. I suggest follow up with PCP and consider GYNE consult. She may take Tylenol for pain as needed. - Problem List Review Problem List Initiated/Reviewed/Updated: Yes - My Orders Last 24 Hours: My Active Orders 01/18/19 18:56 Abdomen Pelvis w Cont [CT] Stat 01/18/19 19:15 Diatrizoate Eloina/Diatrizoate Na [Gastrografin 37%] 30 ml PO . DIRECTED - Assessment/Plan Last 24 Hours: My Active Orders 01/18/19 18:56 Abdomen Pelvis w Cont [CT] Stat 01/18/19 19:15 Diatrizoate Eloina/Diatrizoate Na [Gastrografin 37%] 30 ml PO . DIRECTED Plan: Follow up with PCP.
== END 2019-01-18 20:30 | disposition home or self-care (01) ==
LOC: FB.ED 18:23
DX: R10.32 Left lower quadrant pain (principal); F17.210 Nicotine dependence, cigarettes, uncomplicated; F41.9 Anxiety disorder, unspecified; F32.9 Major depressive disorder, single episode, unspecified; Z91.040 Latex allergy status; Z79.899 Other long term (current) drug therapy; Z88.5 Allergy status to narcotic agent
CPT/HCPCS: 36415; 74177; 80048; 85025; 85651; 86140; 99284; Q9963; Q9967

== ENCOUNTER 2019-02-01 05:24 | Emergency (ER) | payer MEDICAID ==
[2019-02-01] MEDS ORDERED: Acetaminophen/HYDROcodone 325-5 MG Tab PO STA (05:38)
--- NOTE | 2019-02-01 05:42 | EDM.PDOC ---
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 Pt has pain at her right anterior knee with movement. She noticed a swelling at her at her ant knee as well. No open wound, no sob, no CP or any other acute medical issues. 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 Pain Score (Numeric/FACES): 10 - Related Data Allergies Allergy/AdvReac Type Severity Reaction Status Date / Time Latex, Natural Rubber Allergy Swelling Verified 02/01/19 05:32 morphine Allergy Hives Verified 02/01/19 05:32 Home Meds: Home Meds Escitalopram [Lexapro] 20 mg PO DAILY 10/10/16 [History] Metaxalone 800 mg PO TID 10/07/18 [History] traZODone HCl [Trazodone HCl] 50 mg PO BEDTIME 01/16/19 [History] Past Medical History - Past Health History Medical/Surgical History: Denies Medical/Surgical History HEENT History: Reports: Impaired Vision Respiratory History: Reports: Asthma, Other (See Below) Other Respiratory History: Smoker. Gastrointestinal History: Reports: Cholelithiasis, Other (See Below) Other Gastrointestinal History: colitis Genitourinary History: Reports: Renal Calculus, UTI, Recurrent Other Genitourinary History: Bladder surgery. GRAIN BUYER History: Reports: Other GRAIN BUYER History: . Musculoskeletal History: Reports: Arthritis, Fibromyalgia, Other (See Below) Other Musculoskeletal History: Carpal tunnel R wrist. Sciatica. Neurological History: Reports: Concussion, Migraines Psychiatric History: Reports: Anxiety, Depression, Psych Hospitalization(s), Suicide Attempt Endocrine/Metabolic History: Reports: Obesity/BMI 30+ Hematologic History: Reports: Anemia, Iron Deficiency Oncologic (Cancer) History: Reports: Uterine - Infectious Disease History Infectious Disease History: Reports: Chicken Pox - Past Surgical History HEENT Surgical History: Reports: Adenoidectomy, Oral Surgery, Tonsillectomy Respiratory Surgical History: Reports: None GI Surgical History: Reports: Appendectomy, Cholecystectomy Female Surgical History: Reports: Hysterectomy, Tubal Ligation, Other (See Below) Other Female Surgeries/Procedures: bladder repair with mesh Endocrine Surgical History: Reports: None Neurological Surgical History: Reports: None Musculoskeletal Surgical History: Reports: Arthroscopic Knee Oncologic Surgical History: Reports: Other (See Below) Social & Family History - Family History Family Medical History: Noncontributory - Caffeine Use Caffeine Use: Reports: Soda - Living Situation & Occupation Living situation: Reports: , with Family Occupation: Unemployed Review of Systems - Review of Systems Review Of Systems: See Below Constitutional: Reports: No Symptoms Eyes: Reports: No Symptoms Ears: Reports: No Symptoms Nose: Reports: No Symptoms Mouth/Throat: Reports: No Symptoms Respiratory: Reports: No Symptoms Cardiovascular: Reports: No Symptoms GI/Abdominal: Reports: No Symptoms Genitourinary: Reports: No Symptoms Musculoskeletal: Reports: Joint Swelling (righ knee) Skin: Reports: No Symptoms Neurological: Reports: No Symptoms Psychiatric: Reports: No Symptoms ED EXAM, GENERAL - Physical Exam Exam: See Below Exam Limited By: No Limitations General Appearance: Alert, WD/WN, Mild Distress, Obese Eye Exam: Bilateral Eye: Normal Inspection Ears: Normal External Exam Ear Exam: Bilateral Ear: Auricle Normal Nose: Normal Inspection Throat/Mouth: Normal Inspection, Normal Lips, Normal Oropharynx, Normal Voice, No Airway Compromise Head: Atraumatic, Normocephalic Neck: Normal Inspection, Supple, Non-Tender, Full Range of Motion Respiratory/Chest: No Respiratory Distress, Lungs Clear, Normal Breath Sounds, No Accessory Muscle Use, Chest Non-Tender Cardiovascular: Normal Peripheral Pulses, Regular Rate, Rhythm, No Edema, No Gallop, No JVD, No Murmur, No Rub Peripheral Pulses: 2+: Femoral (L) GI/Abdominal: Normal Bowel Sounds, Soft, Non-Tender, No Organomegaly, No Distention, No Abnormal Bruit, No Mass, Pelvis Stable (Female) Exam: Deferred Rectal (Female) Exam: Deferred Back Exam: Normal Inspection Extremities: Joint Swelling (right knee), Limited Range of Motion Neurological: Alert, Oriented, CN II-XII Intact, Normal Cognition, Abnormal Gait (due to right knee pain) Psychiatric: Normal Affect, Normal Mood Skin Exam: Warm, Dry, Intact, Normal Color, No Rash Lymphatic: No Adenopathy Course - Vital Signs Text/Narrative:: 38 y.o f came to the ed with her SO due to right knee pain after a fall onto her right knee 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 Pt has pain at her right anterior knee with movement. She noticed a swelling at her at her ant knee as well. No open wound, no sob, no CP or any other acute medical issues. 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 Reexam: Improved Plan: D/C with instructions Last Recorded V/S: Last Vital Signs Temp 36.7 C 02/01/19 06:45 Pulse 92 02/01/19 06:45 Resp 17 02/01/19 06:45 BP 139/92 H 02/01/19 06:45 Pulse Ox 96 02/01/19 06:45 - Orders/Labs/Meds Orders: Active Orders 24 hr Category Date Time Status Knee 3V Rt [CR] Stat Exams 02/01/19 05:37 Taken Meds: Medications Discontinued Medications Generic Name Dose Route Start Last Admin Trade Name Freq PRN Reason Stop Dose Admin Hydrocodone Bitart/Acetaminophen 1 tab 02/01/19 05:38 02/01/19 05:43 [place] 325-5 Mg PO 02/01/19 05:39 1 tab ONETIME STA Administration Departure - Departure Time of Disposition: 06:34 Disposition: Home, Self-Care 01 Condition: Good Clinical Impression: Fall Qualifiers: Encounter type: initial encounter Qualified Code(s): W19.XXXA - Unspecified fall, initial encounter Right knee sprain Qualifiers: Encounter type: initial encounter Involved ligament of knee: other ligament Qualified Code(s): S83.8X1A - Sprain of other specified parts of right knee, initial encounter - Discharge Information Instructions: Knee Sprain, Adult, [id number] Referrals: Sonny Phipps MD [Primary Care Provider] - Forms: ED Department Discharge, ED Return to Work/School Form Additional Instructions: Rest, ICE and elevation, please wear knee immobilizer, take Motrin for pain, please f/u, come back if your symptoms gt worse acutely - My Orders Last 24 Hours: My Active Orders 02/01/19 05:37 Knee 3V Rt [CR] Stat - Assessment/Plan Last 24 Hours: My Active Orders 02/01/19 05:37 Knee 3V Rt [CR] Stat
[2019-02-01 06:47] VITALS: BP 139/92
--- NOTE | 2019-02-02 09:44 | CR ---
INDICATION: Trauma, fell down stairs last night. RIGHT KNEE: Three views of the left knee revealed slight prominence at the suprapatellar bursa, raising question of a minimal knee joint effusion. This should be correlated clinically. Minimal degenerative changes are noted with joint spaces appearing well- maintained. A definite acute fracture or dislocation was not identified. IMPRESSION: 1. No definite acute fracture or dislocation. 2. Mild osteoarthritis. 3. Question of a minimal knee joint effusion. BROOKE
== END 2019-02-01 06:45 | disposition home or self-care (01) ==
LOC: FB.ED 05:24
DX: S83.8X1A Sprain of other specified parts of right knee, initial encounter (principal); F41.9 Anxiety disorder, unspecified; F32.9 Major depressive disorder, single episode, unspecified; J45.909 Unspecified asthma, uncomplicated; Z79.899 Other long term (current) drug therapy; Z88.5 Allergy status to narcotic agent; Z91.040 Latex allergy status; W19.XXXA Unspecified fall, initial encounter
CPT/HCPCS: 73562; 99283; A9270

== ENCOUNTER 2019-04-17 14:59 | Emergency (ER) | payer MEDICAID ==
--- NOTE | 2019-04-17 15:44 | EDM.PDOC ---
ED HPI GENERAL MEDICAL PROBLEM - General Chief Complaint: General Stated Complaint: DIZZY, LIGHT HEAEDED Time Seen by Provider: 04/17/19 15:35 Source of Information: Reports: Patient, Old Records History Limitations: Reports: No Limitations - History of Present Illness INITIAL COMMENTS - FREE TEXT/NARRATIVE: Umesh awoke this am feeling tired, headaches, myalgias and malaise. 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 There is no reported fever, chills, sweats, abdominal or back pain, no chest pain or SOB. She has taken no meds. HEAD Pain Score (Numeric/FACES): 10 - Related Data Allergies Allergy/AdvReac Type Severity Reaction Status Date / Time Latex, Natural Rubber Allergy Swelling Verified 04/17/19 15:10 morphine Allergy Hives Verified 04/17/19 15:10 Home Meds: Home Meds Escitalopram [Lexapro] 20 mg PO DAILY 10/10/16 [History] Metaxalone 800 mg PO TID 10/07/18 [History] traZODone HCl [Trazodone HCl] 50 mg PO BEDTIME 01/16/19 [History] Albuterol [Ventolin HFA] 1 puff .XX Q4H PRN 04/17/19 [History] Fluticasone Propionate [Flovent HFA 110 MCG] 1 puff INH BID 04/17/19 [History] Phentermine HCl 37.5 mg PO DAILY 04/17/19 [History] Past Medical History - Past Health History Medical/Surgical History: Denies Medical/Surgical History HEENT History: Reports: Impaired Vision Respiratory History: Reports: Asthma, Other (See Below) Other Respiratory History: Smoker. Gastrointestinal History: Reports: Cholelithiasis, Other (See Below) Other Gastrointestinal History: colitis Genitourinary History: Reports: Renal Calculus, UTI, Recurrent Other Genitourinary History: Bladder surgery. 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 Musculoskeletal History: Reports: Arthritis, Fibromyalgia, Other (See Below) Other Musculoskeletal History: Carpal tunnel R wrist. Sciatica. Neurological History: Reports: Concussion, Migraines Psychiatric History: Reports: Anxiety, Depression, Psych Hospitalization(s), Suicide Attempt Endocrine/Metabolic History: Reports: Obesity/BMI 30+ Hematologic History: Reports: Anemia, Iron Deficiency Oncologic (Cancer) History: Reports: Uterine - Infectious Disease History Infectious Disease History: Reports: Chicken Pox - Past Surgical History HEENT Surgical History: Reports: Adenoidectomy, Oral Surgery, Tonsillectomy Respiratory Surgical History: Reports: None GI Surgical History: Reports: Appendectomy, Cholecystectomy Female Surgical History: Reports: Hysterectomy, Tubal Ligation, Other (See Below) Other Female Surgeries/Procedures: bladder repair with mesh Endocrine Surgical History: Reports: None Neurological Surgical History: Reports: None Musculoskeletal Surgical History: Reports: Arthroscopic Knee Oncologic Surgical History: Reports: Other (See Below) Social & Family History - Family History Family Medical History: Noncontributory - Tobacco Use Smoking Status *Q: Current Every Day Smoker Years of Tobacco use: 20 Packs/Tins Daily: 0.5 - Caffeine Use Caffeine Use: Reports: Soda - Recreational Drug Use Recreational Drug Use: Yes Drug Use in Last 12 Months: Yes Recreational Drug Type: Reports: Marijuana/Hashish Recreational Drug Use Frequency: Daily - Living Situation & Occupation Living situation: Reports: , with Family Occupation: Unemployed ED ROS GENERAL - Review of Systems Review Of Systems: See Below Constitutional: Reports: Malaise, Decreased Appetite HEENT: Reports: No Symptoms Respiratory: Reports: No Symptoms Cardiovascular: Reports: No Symptoms Endocrine: Reports: No Symptoms GI/Abdominal: Reports: Decreased Appetite : Reports: No Symptoms Musculoskeletal: Reports: No Symptoms Skin: Reports: No Symptoms Neurological: Reports: Headache Psychiatric: Reports: No Symptoms Hematologic/Lymphatic: Reports: No Symptoms Immunologic: Reports: No Symptoms ED EXAM, GENERAL - Physical Exam Exam: See Below Exam Limited By: No Limitations General Appearance: Alert, WD/WN, No Apparent Distress, Obese, Other (malaise) Eye Exam: Bilateral Eye: EOMI, Normal Inspection, PERRL Ears: Normal External Exam, Normal TMs Nose: Normal Inspection Throat/Mouth: Normal Inspection, Normal Lips, Normal Oropharynx, Normal Voice Head: Normocephalic Neck: Normal Inspection, Supple, Full Range of Motion Respiratory/Chest: Lungs Clear, Normal Breath Sounds Cardiovascular: Normal Peripheral Pulses, Regular Rate, Rhythm, No Murmur GI/Abdominal: Normal Bowel Sounds, Soft, Non-Tender, No Organomegaly, No Distention, No Mass (Female) Exam: Deferred Rectal (Female) Exam: Deferred Back Exam: Normal Inspection Extremities: Normal Inspection Neurological: Alert, Oriented, CN II-XII Intact, Normal Cognition, Normal Gait, No Motor/Sensory Deficits Psychiatric: Normal Affect, Normal Mood Skin Exam: Warm, Dry, Intact, Normal Color, No Rash Lymphatic: No Adenopathy Course - Vital Signs Text/Narrative:: A screening CBC and UA ar satisfactory. Headache sxs seemed to improve in the ED. A viral etiology is considered. Last Recorded V/S: Last Vital Signs Temp 36.4 C 04/17/19 15:00 Pulse 86 04/17/19 15:00 Resp 19 04/17/19 15:00 BP 140/81 04/17/19 15:00 Pulse Ox 95 04/17/19 15:00 - Orders/Labs/Meds Labs: Laboratory Tests 04/17/19 04/17/19 Range/Units 15:42 15:55 WBC 11.6 (4.5-12.0) X10-3/uL RBC 6.52 H (3.23-5.20) x10(6)uL Hgb 13.6 (11.5-15.5) g/dL Hct 43.2 (30.0-51.3) % MCV 66.3 L (80-96) fL MCH 20.9 L (27.7-33.6) pg MCHC 31.5 L (32.2-35.4) g/dL RDW 16.2 H (11.5-15.5) % Plt Count 224 (125-369) X10(3)uL MPV 8.5 (7.4-10.4) fL Neut % (Auto) 77.8 (46-82) % Lymph % (Auto) 15.7 (13-37) % [place] % (Auto) 4.4 (4-12) % Eos % (Auto) 1 (1.0-5.0) % Baso % (Auto) 1 (0-2) % Neut # (Auto) 9.1 H (1.6-8.3) # Lymph # (Auto) 1.8 (0.6-5.0) # [place] # (Auto) 0.5 (0.0-1.3) # Eos # (Auto) 0.1 (0.0-0.8) # Baso # (Auto) 0.1 (0.0-0.2) # Urine Color Yellow (YELLOW) Urine Appearance Clear (CLEAR) Urine pH 5.0 (5.0-6.5) Ur Specific [place] 1.025 (1.010-1.025) Urine Protein Negative (NEGATIVE) mg/dL Urine Glucose (UA) Normal (NORMAL) mg/dL Urine Ketones Negative (NEGATIVE) mg/dL Urine Occult Blood Negative (NEGATIVE) Urine Nitrite Negative (NEGATIVE) Urine Bilirubin Negative (NEGATIVE) Urine Urobilinogen Normal (NEGATIVE) mg/dL Ur Leukocyte Esterase Negative (NEGATIVE) Urine RBC 0-5 (0-5) Urine WBC 0-5 (0-5) Ur Squamous Epith Cells Occasional (NS,R,O) Urine Bacteria Rare H (NS) Departure - Departure Time of Disposition: 16:36 Disposition: Home, Self-Care 01 Condition: Fair Clinical Impression: Tension-type headache - Discharge Information *PRESCRIPTION DRUG MONITORING PROGRAM REVIEWED*: Not Applicable *COPY OF PRESCRIPTION DRUG MONITORING REPORT IN PATIENT CHAITANYA: Not Applicable Instructions: Tension Headache, Adult, [id number] Referrals: Sergio James MD [Primary Care Provider] - Forms: ED Department Discharge Additional Instructions: TAKE TYLENOL/IBUPROFEN NECESSARY FOR HEADACHE. - Problem List & Annotations (1) Tension-type headache SNOMED Code(s): 568670413 Code(s): G44.209 - TENSION-TYPE HEADACHE, UNSPECIFIED, NOT INTRACTABLE Status: Acute Current Visit: Yes Annotation/Comment:: I suggested rest, hydration, and NSAIDs for sxs. A note for medical leave was provided. - Problem List Review Problem List Initiated/Reviewed/Updated: Yes - Assessment/Plan Plan: Follow up with PCP.
[2019-04-17 16:47] VITALS: BP 136/82
== END 2019-04-17 16:40 | disposition home or self-care (01) ==
LOC: FB.ED 14:59
DX: G44.209 Tension-type headache, unspecified, not intractable (principal); J45.909 Unspecified asthma, uncomplicated; D50.9 Iron deficiency anemia, unspecified; F17.210 Nicotine dependence, cigarettes, uncomplicated; Z91.040 Latex allergy status; Z79.899 Other long term (current) drug therapy
CPT/HCPCS: 36415; 81001; 85025; 99285

== ENCOUNTER 2019-04-24 20:12 | Emergency (ER) | payer MEDICAID ==
--- NOTE | 2019-04-24 21:10 | EDM.PDOC ---
ED HPI GENERAL MEDICAL PROBLEM - General Chief Complaint: General Stated Complaint: BODY IS SWOLLEN Time Seen by Provider: 04/24/19 21:00 Source of Information: Reports: Patient, Old Records History Limitations: Reports: No Limitations - History of Present Illness INITIAL COMMENTS - FREE TEXT/NARRATIVE: Umesh returns to [facility] ED with reported swelling of her body associated with pain and stiffness of the posterior neck over the past 3 days. Her hands feel tight and uncomfortable. Her wrists and elbow feel uncomfortable in the absence of visible swelling. There is no swelling of the LEs or abdomen, and her weight is actually down 4#. There is no chest pain, SOB, blurred vision, GI upset, CVA pain or jones malaise. She has tried no meds. - Related Data Allergies Allergy/AdvReac Type Severity Reaction Status Date / Time Latex, Natural Rubber Allergy Swelling Verified 04/24/19 21:31 morphine Allergy Hives Verified 04/24/19 21:31 Home Meds: Home Meds Escitalopram [Lexapro] 20 mg PO DAILY 10/10/16 [History] Metaxalone 800 mg PO TID 10/07/18 [History] traZODone HCl [Trazodone HCl] 50 mg PO BEDTIME 01/16/19 [History] Albuterol [Ventolin HFA] 1 puff .XX Q4H PRN 04/17/19 [History] Fluticasone Propionate [Flovent HFA 110 MCG] 2 puff INH DAILY 04/17/19 [History] Phentermine HCl 37.5 mg PO DAILY 04/17/19 [History] Past Medical History - Past Health History Medical/Surgical History: Denies Medical/Surgical History HEENT History: Reports: Impaired Vision Respiratory History: Reports: Asthma, Other (See Below) Other Respiratory History: Smoker. Gastrointestinal History: Reports: Cholelithiasis, Other (See Below) Other Gastrointestinal History: colitis Genitourinary History: Reports: Renal Calculus, UTI, Recurrent Other Genitourinary History: Bladder surgery. 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 Musculoskeletal History: Reports: Arthritis, Fibromyalgia, Other (See Below) Other Musculoskeletal History: Carpal tunnel R wrist. Sciatica. Neurological History: Reports: Concussion, Migraines Psychiatric History: Reports: Anxiety, Depression, Psych Hospitalization(s), Suicide Attempt Endocrine/Metabolic History: Reports: Obesity/BMI 30+ Hematologic History: Reports: Anemia, Iron Deficiency Oncologic (Cancer) History: Reports: Uterine - Infectious Disease History Infectious Disease History: Reports: Chicken Pox - Past Surgical History HEENT Surgical History: Reports: Adenoidectomy, Oral Surgery, Tonsillectomy Respiratory Surgical History: Reports: None GI Surgical History: Reports: Appendectomy, Cholecystectomy Female Surgical History: Reports: Hysterectomy, Tubal Ligation, Other (See Below) Other Female Surgeries/Procedures: bladder repair with mesh Endocrine Surgical History: Reports: None Neurological Surgical History: Reports: None Musculoskeletal Surgical History: Reports: Arthroscopic Knee Oncologic Surgical History: Reports: Other (See Below) Social & Family History - Family History Family Medical History: Noncontributory - Tobacco Use Smoking Status *Q: Current Every Day Smoker Years of Tobacco use: 20 Packs/Tins Daily: 1 - Caffeine Use Caffeine Use: Reports: Soda - Recreational Drug Use Recreational Drug Use: Yes Drug Use in Last 12 Months: Yes Recreational Drug Type: Reports: Marijuana/Hashish Other Recreational Drug Type: Patient states she uses marijuana usually daily at bedtime. - Living Situation & Occupation Living situation: Reports: , with Family Occupation: Unemployed ED ROS GENERAL - Review of Systems Review Of Systems: See Below Constitutional: Reports: Weight Loss HEENT: Reports: No Symptoms Respiratory: Reports: No Symptoms Cardiovascular: Reports: Edema Endocrine: Reports: No Symptoms GI/Abdominal: Reports: No Symptoms : Reports: No Symptoms Musculoskeletal: Reports: Neck Pain Skin: Reports: No Symptoms Neurological: Reports: No Symptoms Psychiatric: Reports: Anxiety Hematologic/Lymphatic: Reports: No Symptoms ED EXAM, GENERAL - Physical Exam Exam: See Below Exam Limited By: No Limitations General Appearance: Alert, WD/WN, No Apparent Distress, Obese Eye Exam: Bilateral Eye: EOMI, Normal Inspection, PERRL Ears: Normal External Exam Nose: Normal Inspection Throat/Mouth: Normal Inspection, Normal Lips, Normal Oropharynx, Normal Voice, No Airway Compromise Head: Normocephalic Neck: Normal Inspection, Tender Midline Respiratory/Chest: No Respiratory Distress, Lungs Clear, No Accessory Muscle Use , Chest Non-Tender Cardiovascular: Regular Rate, Rhythm, No Murmur GI/Abdominal: Normal Bowel Sounds, Soft, Non-Tender, No Organomegaly, No Distention, No Mass (Female) Exam: Deferred Rectal (Female) Exam: Deferred Back Exam: Normal Inspection Extremities: Normal Range of Motion, Other (mild diffuse swelling of digits and hands, equivocable of wrists, none of LEs) Neurological: Alert, Oriented, CN II-XII Intact, Normal Cognition, Normal Gait, No Motor/Sensory Deficits Psychiatric: Normal Affect, Anxious Skin Exam: Warm, Dry, Intact, Normal Color, No Rash Lymphatic: No Adenopathy Course - Vital Signs Text/Narrative:: I reviewed screening labwork, noting mild leukocytosis with slight L shift, CRP 1.8 also mildly elevated, UA and CMP baseline. A viral illness with secondary inflammation is suspected and appears benign at this time. Last Recorded V/S: Last Vital Signs Temp 36.5 C 04/24/19 20:40 Pulse 98 04/24/19 20:40 Resp 18 04/24/19 20:40 BP 148/104 H 04/24/19 20:40 Pulse Ox 100 04/24/19 20:40 - Orders/Labs/Meds Labs: Laboratory Tests 04/24/19 04/24/19 04/24/19 Range/Units 21:07 21:15 21:15 WBC 13.0 H (4.5-12.0) X10-3/uL RBC 5.72 H (3.23-5.20) x10(6)uL Hgb 12.3 (11.5-15.5) g/dL Hct 37.6 (30.0-51.3) % MCV 65.7 L (80-96) fL MCH 21.6 L (27.7-33.6) pg MCHC 32.9 (32.2-35.4) g/dL RDW 16.1 H (11.5-15.5) % Plt Count 232 (125-369) X10(3)uL MPV 8.1 (7.4-10.4) fL Neut % (Auto) 70.1 (46-82) % Lymph % (Auto) 23.4 (13-37) % [place] % (Auto) 5.1 (4-12) % Eos % (Auto) 1 (1.0-5.0) % Baso % (Auto) 0 (0-2) % Neut # (Auto) 9.2 H (1.6-8.3) # Lymph # (Auto) 3.0 (0.6-5.0) # [place] # (Auto) 0.7 (0.0-1.3) # Eos # (Auto) 0.1 (0.0-0.8) # Baso # (Auto) 0.0 (0.0-0.2) # Sodium 142 (135-145) mmol/L Potassium 3.9 (3.5-5.3) mmol/L Chloride 103 (100-110) mmol/L Carbon Dioxide 29 (21-32) mmol/L BUN 10 (7-18) mg/dL Creatinine 0.7 (0.55-1.02) mg/dL Est Cr Clr Drug Dosing TNP Estimated GFR (MDRD) > 60 (>60) BUN/Creatinine Ratio 14.3 (9-20) Glucose 97 (80-116) mg/dL Calcium 8.6 (8.6-10.2) mg/dL Total Bilirubin 0.4 (0.1-1.3) mg/dL AST 13 (5-25) IU/L ALT 23 (12-36) U/L Alkaline Phosphatase 91 (56-112) IU/L C-Reactive Protein (0.5-0.9) mg/dL Total Protein 7.6 (6.0-8.0) g/dL Albumin 3.4 L (3.5-5.2) g/dL Globulin 4.2 g/dL Albumin/Globulin Ratio 0.8 Urine Color Yellow (YELLOW) Urine Appearance Cloudy (CLEAR) Urine pH 5.0 (5.0-6.5) Ur Specific [place] 1.020 (1.010-1.025) Urine Protein Negative (NEGATIVE) mg/dL Urine Glucose (UA) Normal (NORMAL) mg/dL Urine Ketones Negative (NEGATIVE) mg/dL Urine Occult Blood Negative (NEGATIVE) Urine Nitrite Negative (NEGATIVE) Urine Bilirubin Negative (NEGATIVE) Urine Urobilinogen 1 H (NEGATIVE) mg/dL Ur Leukocyte Esterase Negative (NEGATIVE) Urine RBC 0-5 (0-5) Urine WBC 0-5 (0-5) Ur Squamous Epith Cells Many H (NS,R,O) Urine Bacteria Many H (NS) Urine Mucus Moderate H (NS) 04/24/ Range/Units 21:15 WBC (4.5-12.0) X10-3/uL RBC (3.23-5.20) x10(6)uL Hgb (11.5-15.5) g/dL Hct (30.0-51.3) % MCV (80-96) fL MCH (27.7-33.6) pg MCHC (32.2-35.4) g/dL RDW (11.5-15.5) % Plt Count (125-369) X10(3)uL MPV (7.4-10.4) fL Neut % (Auto) (46-82) % Lymph % (Auto) (13-37) % [place] % (Auto) (4-12) % Eos % (Auto) (1.0-5.0) % Baso % (Auto) (0-2) % Neut # (Auto) (1.6-8.3) # Lymph # (Auto) (0.6-5.0) # [place] # (Auto) (0.0-1.3) # Eos # (Auto) (0.0-0.8) # Baso # (Auto) (0.0-0.2) # Sodium (135-145) mmol/L Potassium (3.5-5.3) mmol/L Chloride (100-110) mmol/L Carbon Dioxide (21-32) mmol/L BUN (7-18) mg/dL Creatinine (0.55-1.02) mg/dL Est Cr Clr Drug Dosing Estimated GFR (MDRD) (>60) BUN/Creatinine Ratio (9-20) Glucose (80-116) mg/dL Calcium (8.6-10.2) mg/dL Total Bilirubin (0.1-1.3) mg/dL AST (5-25) IU/L ALT (12-36) U/L Alkaline Phosphatase (56-112) IU/L C-Reactive Protein 1.8 H (0.5-0.9) mg/dL Total Protein (6.0-8.0) g/dL Albumin (3.5-5.2) g/dL Globulin g/dL Albumin/Globulin Ratio Urine Color (YELLOW) Urine Appearance (CLEAR) Urine pH (5.0-6.5) Ur Specific [place] (1.010-1.025) Urine Protein (NEGATIVE) mg/dL Urine Glucose (UA) (NORMAL) mg/dL Urine Ketones (NEGATIVE) mg/dL Urine Occult Blood (NEGATIVE) Urine Nitrite (NEGATIVE) Urine Bilirubin (NEGATIVE) Urine Urobilinogen (NEGATIVE) mg/dL Ur Leukocyte Esterase (NEGATIVE) Urine RBC (0-5) Urine WBC (0-5) Ur Squamous Epith Cells (NS,R,O) Urine Bacteria (NS) Urine Mucus (NS) Departure - Departure Time of Disposition: 21:45 Disposition: Home, Self-Care 01 Condition: Fair Clinical Impression: Nonspecific syndrome suggestive of viral illness - Discharge Information *PRESCRIPTION DRUG MONITORING PROGRAM REVIEWED*: Not Applicable *COPY OF PRESCRIPTION DRUG MONITORING REPORT IN PATIENT CHAITANYA: Not Applicable Referrals: Sonny Phipps MD [Primary Care Provider] - Forms: ED Department Discharge - Problem List & Annotations (1) Nonspecific syndrome suggestive of viral illness SNOMED Code(s): 662978634 Code(s): B34.9 - VIRAL INFECTION, UNSPECIFIED Status: Acute Current Visit : Yes Annotation/Comment:: Suspected viral illness with mild inflammation. I suggested sxs cares, NSAIDs, hydration, and activity as tolerated. - Problem List Review Problem List Initiated/Reviewed/Updated: Yes - Assessment/Plan Plan: Follow up with PCP next week if needed.
[2019-04-24 22:17] VITALS: BP 147/98
== END 2019-04-24 21:50 | disposition home or self-care (01) ==
LOC: FB.ED 20:12
DX: B34.9 Viral infection, unspecified (principal); F17.210 Nicotine dependence, cigarettes, uncomplicated; Z91.040 Latex allergy status; Z88.5 Allergy status to narcotic agent; Z79.899 Other long term (current) drug therapy
CPT/HCPCS: 36415; 80053; 81001; 85025; 86140; 99283

== ENCOUNTER 2019-08-30 21:17 | Emergency (ER) | payer MEDICAID ==
--- NOTE | 2019-08-30 22:41 | EDM.PDOC ---
ED HPI GENERAL MEDICAL PROBLEM - General Chief Complaint: Lower Extremity Injury/Pain Stated Complaint: LT LEG SWOLLEN, DIZZY Time Seen by Provider: 08/30/19 21:35 Source of Information: Reports: Patient - History of Present Illness INITIAL COMMENTS - FREE TEXT/NARRATIVE: Patient presented to the ED because of swelling on her lef ankle/leg. She denies any recent trauma or injury. three is no associated dyspnea or leg pain associated with ambulation. left ankle Pain Score (Numeric/FACES): 8 - Related Data Allergies Allergy/AdvReac Type Severity Reaction Status Date / Time Latex, Natural Rubber Allergy Swelling Verified 04/24/19 21:31 morphine Allergy Hives Verified 04/24/19 21:31 Home Meds: Home Meds Escitalopram [Lexapro] 20 mg PO DAILY 10/10/16 [History] Metaxalone 800 mg PO TID 10/07/18 [History] traZODone HCl [Trazodone HCl] 50 mg PO BEDTIME 01/16/19 [History] Albuterol [Ventolin HFA] 1 puff .XX Q4H PRN 04/17/19 [History] Fluticasone Propionate [Flovent HFA 110 MCG] 2 puff INH DAILY 04/17/19 [History] Phentermine HCl 37.5 mg PO DAILY 04/17/19 [History] Past Medical History - Past Health History Medical/Surgical History: Denies Medical/Surgical History HEENT History: Reports: Impaired Vision Respiratory History: Reports: Asthma, Other (See Below) Other Respiratory History: Smoker. Gastrointestinal History: Reports: Cholelithiasis, Other (See Below) Other Gastrointestinal History: colitis Genitourinary History: Reports: Renal Calculus, UTI, Recurrent Other Genitourinary History: Bladder surgery. 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 Musculoskeletal History: Reports: Arthritis, Fibromyalgia, Other (See Below) Other Musculoskeletal History: Carpal tunnel R wrist. Sciatica. Neurological History: Reports: Concussion, Migraines Psychiatric History: Reports: Anxiety, Depression, Psych Hospitalization(s), Suicide Attempt Endocrine/Metabolic History: Reports: Obesity/BMI 30+ Hematologic History: Reports: Anemia, Iron Deficiency Oncologic (Cancer) History: Reports: Uterine - Infectious Disease History Infectious Disease History: Reports: Chicken Pox - Past Surgical History HEENT Surgical History: Reports: Adenoidectomy, Oral Surgery, Tonsillectomy Respiratory Surgical History: Reports: None GI Surgical History: Reports: Appendectomy, Cholecystectomy Female Surgical History: Reports: Hysterectomy, Tubal Ligation, Other (See Below) Other Female Surgeries/Procedures: bladder repair with mesh Endocrine Surgical History: Reports: None Neurological Surgical History: Reports: None Musculoskeletal Surgical History: Reports: Arthroscopic Knee Oncologic Surgical History: Reports: Other (See Below) Social & Family History - Family History Family Medical History: Noncontributory - Tobacco Use Smoking Status *Q: Current Every Day Smoker Years of Tobacco use: 20 Packs/Tins Daily: 0.5 - Caffeine Use Caffeine Use: Reports: Energy Drinks, Soda - Recreational Drug Use Recreational Drug Type: Reports: Marijuana/Hashish - Living Situation & Occupation Living situation: Reports: , with Family Occupation: Unemployed Review of Systems - Review of Systems Review Of Systems: See Below Constitutional: Reports: No Symptoms Eyes: Reports: No Symptoms Ears: Reports: No Symptoms Nose: Reports: No Symptoms Mouth/Throat: Reports: No Symptoms Respiratory: Reports: No Symptoms Cardiovascular: Reports: No Symptoms GI/Abdominal: Reports: No Symptoms Genitourinary: Reports: No Symptoms Musculoskeletal: Reports: Joint Swelling Skin: Reports: No Symptoms ED EXAM, GENERAL - Physical Exam Exam: See Below Exam Limited By: Altered Mental Status General Appearance: Alert, No Apparent Distress Ears: Normal External Exam, Normal [place] Nose: Normal Inspection, Normal Mucosa, No Blood Throat/Mouth: Normal Inspection, Normal Lips, Normal Teeth Head: Atraumatic, Normocephalic, Facial Swelling Neck: Normal Inspection, Supple, Non-Tender, Full Range of Motion Respiratory/Chest: No Respiratory Distress, Lungs Clear, Normal Breath Sounds, No Accessory Muscle Use, Chest Non-Tender Cardiovascular: Normal Peripheral Pulses, Regular Rate, Rhythm, No Edema, No Gallop, No JVD, No Murmur, No Rub GI/Abdominal: Normal Bowel Sounds, Soft, Non-Tender, No Organomegaly, No Distention, No Abnormal Bruit, No Mass Course - Vital Signs Text/Narrative:: D-dimer-neg Last Recorded V/S: Last Vital Signs Temp 36.6 C 08/30/19 21:30 Pulse 99 08/30/19 21:30 Resp 15 08/30/19 21:30 BP 144/90 H 08/30/19 21:30 Pulse Ox 98 08/30/19 21:30 - Orders/Labs/Meds Labs: Laboratory Tests 08/30/19 Range/Units 22:02 D-Dimer, Quantitative 0.36 (0.0-0.59) mg/LFEU Departure - Departure Time of Disposition: 22:35 Disposition: Home, Self-Care 01 Condition: Good Clinical Impression: Peripheral edema - Discharge Information Referrals: Sonny Phipps MD [Primary Care Provider] - Additional Instructions: please read discharge instructions on peripheral edema low salt diet elevate your leg continue your diuretics, take HCTZ 25 mg once daily for 1 week then take your 12.5 mg dose after 1 week Follow up if symptoms persist
[2019-08-30 22:49] VITALS: BP 139/87; PULSE 98
== END 2019-08-30 22:49 | disposition home or self-care (01) ==
LOC: FB.ED 21:17
DX: R60.0 Localized edema (principal); J45.909 Unspecified asthma, uncomplicated; E66.9 Obesity, unspecified; F41.9 Anxiety disorder, unspecified; F32.9 Major depressive disorder, single episode, unspecified; Z68.42 Body mass index [BMI] 45.0-49.9, adult; Z91.040 Latex allergy status; Z88.8 Allergy status to other drugs, medicaments and biological substances; F17.210 Nicotine dependence, cigarettes, uncomplicated; Z79.51 Long term (current) use of inhaled steroids; Z79.899 Other long term (current) drug therapy
CPT/HCPCS: 36415; 85379; 99283

== ENCOUNTER 2019-12-28 11:43 | Emergency (ER) | payer MEDICAID ==
[2019-12-28] MEDS ORDERED: HYDROmorphone 2 MG/ML SDV IM ONE (13:15)
[2019-12-28] MEDS ORDERED: Ondansetron 4 MG/2 ML SDV IM ONE (13:16)
--- NOTE | 2019-12-28 13:23 | EDM.PDOC ---
ED HPI GENERAL MEDICAL PROBLEM - General Chief Complaint: Headache Stated Complaint: EXTREME NAUSEA HEADACHE Time Seen by Provider: 12/28/19 13:16 Source of Information: Reports: Patient History Limitations: Reports: No Limitations - History of Present Illness INITIAL COMMENTS - FREE TEXT/NARRATIVE: Patient presents with a left occipital headache. She has been having daily migraines since 07/2019, usually right sided, but occasionally in other regions. The patient believed the frequent migraines were due to her stressful occupation, but persist after quitting her job. She has not followed up with her primary physician or neurology about this. Today's headache is associated with nausea and photophobia per usual, but more severe than typical. Denies fevers, chills, or stiff neck. Patient has received Dilaudid and Zofran injections in the past with improvement. Quality: Reports: Ache Severity: Severe headache Pain Score (Numeric/FACES): 10 - Related Data Allergies Allergy/AdvReac Type Severity Reaction Status Date / Time Latex, Natural Rubber Allergy Swelling Verified 04/24/19 21:31 morphine Allergy Hives Verified 04/24/19 21:31 Home Meds: Home Meds Escitalopram [Lexapro] 20 mg PO DAILY 10/10/16 [History] Metaxalone 800 mg PO TID 10/07/18 [History] traZODone HCl [Trazodone HCl] 50 mg PO BEDTIME 01/16/19 [History] Albuterol [Ventolin HFA] 1 puff .XX Q4H PRN 04/17/19 [History] Fluticasone Propionate [Flovent HFA 110 MCG] 2 puff INH DAILY 04/17/19 [History] Phentermine HCl 37.5 mg PO DAILY 04/17/19 [History] Past Medical History HEENT History: Reports: Impaired Vision Respiratory History: Reports: Asthma, Other (See Below) Other Respiratory History: Smoker. Gastrointestinal History: Reports: Cholelithiasis, Other (See Below) Other Gastrointestinal History: colitis Genitourinary History: Reports: Renal Calculus, UTI, Recurrent Other Genitourinary History: Bladder surgery. 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 Musculoskeletal History: Reports: Arthritis, Fibromyalgia, Other (See Below) Other Musculoskeletal History: Carpal tunnel R wrist. Sciatica. Neurological History: Reports: Concussion, Migraines Psychiatric History: Reports: Anxiety, Depression, Psych Hospitalization(s), Suicide Attempt Endocrine/Metabolic History: Reports: Obesity/BMI 30+ Hematologic History: Reports: Anemia, Iron Deficiency Oncologic (Cancer) History: Reports: Uterine - Infectious Disease History Infectious Disease History: Reports: Chicken Pox - Past Surgical History HEENT Surgical History: Reports: Adenoidectomy, Oral Surgery, Tonsillectomy Respiratory Surgical History: Reports: None GI Surgical History: Reports: Appendectomy, Cholecystectomy Female Surgical History: Reports: Hysterectomy, Tubal Ligation, Other (See Below) Other Female Surgeries/Procedures: bladder repair with mesh Endocrine Surgical History: Reports: None Neurological Surgical History: Reports: None Musculoskeletal Surgical History: Reports: Arthroscopic Knee Oncologic Surgical History: Reports: Other (See Below) Social & Family History - Family History Family Medical History: Noncontributory - Tobacco Use Smoking Status *Q: Current Every Day Smoker Years of Tobacco use: 20 Packs/Tins Daily: 0.5 Second Hand Smoke Exposure: Yes - Caffeine Use Caffeine Use: Reports: Coffee, Tea - Recreational Drug Use Recreational Drug Use: Yes Recreational Drug Type: Reports: Marijuana/Hashish - Living Situation & Occupation Living situation: Reports: , with Family Occupation: Unemployed ED ROS GENERAL - Review of Systems Review Of Systems: Comprehensive ROS is negative, except as noted in HPI. - Physical Exam Exam: See Below Exam Limited By: No Limitations General Appearance: Alert, WD/WN, No Apparent Distress Eye Exam: Bilateral Eye: EOMI, PERRL Ears: Normal External Exam Nose: Normal Inspection Throat/Mouth: No Airway Compromise Head Exam: Atraumatic, Normocephalic Neck: Supple Respiratory/Chest: No Respiratory Distress, Lungs Clear, Normal Breath Sounds Cardiovascular: Regular Rate, Rhythm, No Murmur Neuro Exam (Abbreviated): Alert, Oriented, Normal Cognition, No Motor/Sensory Deficits Back Exam: Full Range of Motion Extremities: Normal Range of Motion Psychiatric: Normal Affect, Normal Mood Skin Exam: Warm, Dry, Intact Course - Vital Signs Last Recorded V/S: Last Vital Signs Temp 36.3 C 12/28/19 12:00 Pulse 100 12/28/19 12:00 Resp 17 12/28/19 12:00 BP 107/84 12/28/19 12:00 Pulse Ox 100 12/28/19 12:00 - Orders/Labs/Meds Orders: Active Orders 24 hr Category Date Time Status Head wo Cont [CT] Stat Exams 12/28/19 13:15 Ordered Meds: Medications Discontinued Medications Generic Name Dose Route Start Last Admin Trade Name Jon PRN Reason Stop Dose Admin Hydromorphone HCl 1 mg 12/28/19 13:15 12/28/19 13:20 Dilaudid IM 12/28/19 13:16 1 mg ONETIME ONE Administration Ondansetron HCl 4 mg 12/28/19 13:16 12/28/19 13:20 Zofran IM 12/28/19 13:17 4 mg ONETIME ONE Administration - Re-Assessments/Exams Free Text/Narrative Re-Assessment/Exam: 12/28/19 13:[address] Head @2 minutes after receiving Dilaudid, signed out Against Medical Advice despite being advised that by doing so she risks or disability. She is instructed not to drive for 6 hours after receiving the Dilaudid. Patient will be discharged to the care of her boyfriend. Departure - Departure Time of Disposition: 13:38 Disposition: Against Medical Advice 07 Condition: Good Clinical Impression: Cephalgia Qualifiers: Headache type: unspecified Headache chronicity pattern: acute headache Intractability: not intractable Qualified Code(s): R51 - Headache - Discharge Information *PRESCRIPTION DRUG MONITORING PROGRAM REVIEWED*: Yes *COPY OF PRESCRIPTION DRUG MONITORING REPORT IN PATIENT CHAITANYA: No Referrals: Sonny Phipps MD [Primary Care Provider] - Forms: ED Department Discharge Additional Instructions: Patient signed out AMA. Sepsis Event Note - Evaluation Sepsis Screening Result: No Definite Risk - Focused Exam Vital Signs: Vital Signs Temp Pulse Resp BP Pulse Ox 12/28/19 12:00 36.3 C 100 17 107/84 100 Date Exam was Performed: 12/28/19 Time Exam was Performed: 13:32 - My Orders Last 24 Hours: My Active Orders 12/28/19 13:15 Head wo Cont [CT] Stat - Assessment/Plan Last 24 Hours: My Active Orders 12/28/19 13:15 Head wo Cont [CT] Stat
[2019-12-28 13:44] VITALS: BP 132/99; PULSE 91
== END 2019-12-28 13:40 | disposition left against medical advice (07) ==
LOC: FB.ED 11:43
DX: R51 Headache (principal); F17.210 Nicotine dependence, cigarettes, uncomplicated; F41.9 Anxiety disorder, unspecified; F32.9 Major depressive disorder, single episode, unspecified; J45.909 Unspecified asthma, uncomplicated; E66.9 Obesity, unspecified; Z68.42 Body mass index [BMI] 45.0-49.9, adult; Z79.899 Other long term (current) drug therapy; Z88.5 Allergy status to narcotic agent; Z91.040 Latex allergy status
CPT/HCPCS: 96372; 99283; J1170; J2405

== ENCOUNTER 2020-02-10 18:46 | Emergency (ER) | payer MEDICAID, OTHER ==
[2020-02-10 19:01] VITALS: BP 96/58; PULSE 115
--- NOTE | 2020-02-10 19:46 | EDM.PDOC ---
ED HPI GENERAL MEDICAL PROBLEM - General Chief Complaint: Respiratory Problem Stated Complaint: couching Time Seen by Provider: 02/10/20 18:50 Source of Information: Reports: Patient History Limitations: Reports: No Limitations - History of Present Illness INITIAL COMMENTS - FREE TEXT/NARRATIVE: Patient presented to the ED because of increase coughing,wheezing and dyspnea although her oxygen saturation is 99% on RA. There is no associated fever,chills ,malaise. She has a history of asthma and has been using her inhaler without relif of her symptoms. - Related Data Allergies Allergy/AdvReac Type Severity Reaction Status Date / Time Latex, Natural Rubber Allergy Swelling Verified 02/10/20 18:56 morphine Allergy Hives Verified 02/10/20 18:56 Home Meds: Home Meds Escitalopram [Lexapro] 20 mg PO BEDTIME 10/10/16 [History] Albuterol [Ventolin HFA] 2 puff .XX Q4H PRN 04/17/19 [History] Fluticasone Propionate [Flovent HFA 110 MCG] 2 puff INH DAILY 04/17/19 [History] Amitriptyline [Elavil] 50 mg BEDTIME 02/10/20 [History] Amoxicillin/Clavulanate K [Augmentin 875-125 MG] 1 tab PO BID #20 tablet [Rx] Lisinopril/Hydrochlorothiazide [Lisinopril-Hctz 10-12.5 mg Tab] 1 tab DAILY 10/19 [History] predniSONE 20 mg PO DAILY #10 tab 02/10/20 [Rx] predniSONE 40 mg PO DAILY #10 tab 02/10/20 [Rx] Past Medical History - Past Health History Medical/Surgical History: Denies Medical/Surgical History HEENT History: Reports: Impaired Vision Cardiovascular History: Reports: Hypertension Respiratory History: Reports: Asthma, Other (See Below) Other Respiratory History: Smoker. Gastrointestinal History: Reports: Cholelithiasis, Other (See Below) Other Gastrointestinal History: colitis Genitourinary History: Reports: Renal Calculus, UTI, Recurrent Other Genitourinary History: Bladder surgery. 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 Musculoskeletal History: Reports: Arthritis, Fibromyalgia, Other (See Below) Other Musculoskeletal History: Carpal tunnel R wrist. Sciatica. Neurological History: Reports: Concussion, Migraines Psychiatric History: Reports: Anxiety, Depression, Psych Hospitalization(s), Suicide Attempt Endocrine/Metabolic History: Reports: Obesity/BMI 30+ Hematologic History: Reports: Anemia, Iron Deficiency Oncologic (Cancer) History: Reports: Lymphoma, Uterine - Infectious Disease History Infectious Disease History: Reports: Chicken Pox - Past Surgical History HEENT Surgical History: Reports: Adenoidectomy, Oral Surgery, Tonsillectomy Respiratory Surgical History: Reports: None GI Surgical History: Reports: Appendectomy, Cholecystectomy Female Surgical History: Reports: Hysterectomy, Tubal Ligation, Other (See Below) Other Female Surgeries/Procedures: bladder repair with mesh Endocrine Surgical History: Reports: None Neurological Surgical History: Reports: None Musculoskeletal Surgical History: Reports: Arthroscopic Knee, Carpal Tunnel Other Musculoskeletal Surgeries/Procedures:: R carpal tunnel surgery Oncologic Surgical History: Reports: Other (See Below) Social & Family History - Family History Family Medical History: Noncontributory - Tobacco Use Smoking Status *Q: Current Every Day Smoker Years of Tobacco use: 22 Packs/Tins Daily: 1 - Caffeine Use Caffeine Use: Reports: Soda, Tea - Recreational Drug Use Recreational Drug Use: Yes Recreational Drug Type: Reports: Marijuana/Hashish Recreational Drug Use Frequency: Daily - Living Situation & Occupation Living situation: Reports: , with Family Occupation: Unemployed ED ROS GENERAL - Review of Systems Review Of Systems: See Below Constitutional: Reports: No Symptoms. Denies: Fever, Chills, Malaise HEENT: Reports: No Symptoms Respiratory: Reports: Shortness of Breath, Wheezing, Cough. Denies: Sputum Cardiovascular: Reports: No Symptoms Endocrine: Reports: No Symptoms GI/Abdominal: Reports: No Symptoms : Reports: No Symptoms Musculoskeletal: Reports: No Symptoms Skin: Reports: No Symptoms Neurological: Reports: No Symptoms Psychiatric: Reports: No Symptoms ED EXAM, GENERAL - Physical Exam Exam: See Below Exam Limited By: No Limitations General Appearance: Alert, No Apparent Distress Eye Exam: Bilateral Eye: PERRL Ears: Normal External Exam, Normal Canal Nose: Normal Inspection, Normal Mucosa, No Blood Throat/Mouth: Normal Inspection, Normal Lips, Normal Teeth Head: Atraumatic, Normocephalic Neck: Normal Inspection, Supple, Non-Tender, Full Range of Motion Respiratory/Chest: No Respiratory Distress, Lungs Clear, No Accessory Muscle Use , Wheezing Cardiovascular: Normal Peripheral Pulses, Regular Rate, Rhythm, No Edema, No JVD , No Murmur, No Rub GI/Abdominal: Normal Bowel Sounds, Soft, Non-Tender, No Organomegaly, No Distention Back Exam: Normal Inspection, Full Range of Motion Extremities: Normal Inspection, Normal Range of Motion Course - Vital Signs Text/Narrative:: duoneb solumderol 125 mg IM x1 Augmentin 875 mg po x1 Last Recorded V/S: Last Vital Signs Temp 36.9 C 02/10/20 18:46 Pulse 115 H 02/10/20 18:46 Resp 24 H 02/10/20 18:46 BP 96/58 L 02/10/20 18:46 Pulse Ox 100 02/10/20 18:46 - Orders/Labs/Meds Orders: Active Orders 24 hr Category Date Time Status RT Aerosol Therapy [] ASDIRECTED Care 02/10/20 19:52 Active CULTURE STREP A CONFIRMATION [] Routine Lab 02/10/20 19:13 Results STREP SCRN A RAPID W CULT CONF [] Routine Lab 02/10/20 19:13 Results Meds: Medications Discontinued Medications Generic Name Dose Route Start Last Admin Trade Name Ironq PRN Reason Stop Dose Admin Albuterol/Ipratropium 3 ml 02/10/20 19:50 02/10/20 20:04 Duoneb 3.0-0.5 Mg/3 Ml NEB 02/10/20 19:51 3 ml ONETIME ONE Administration Amoxicillin/Clavulanate Potassium 1 tab 02/10/20 19:50 02/10/20 20:03 Augmentin 875 Mg/125 Mg PO 02/10/20 19:51 1 tab NOW STA Administration Methylprednisolone Sodium Succinate 125 mg 02/10/20 19:50 02/10/20 20:03 Solu-Medrol IM 02/10/20 19:51 125 mg ONETIME ONE Administration Departure - Departure Time of Disposition: 20:00 Disposition: Home, Self-Care 01 Condition: Good Clinical Impression: Asthma exacerbation - Discharge Information Prescriptions: Amoxicillin/Clavulanate K [Augmentin 875-125 MG] 1 tab PO BID #20 tablet predniSONE 20 mg PO DAILY #10 tab predniSONE 40 mg PO DAILY #10 tab Instructions: Asthma, Adult, [id number] Referrals: PCP,None [Primary Care Provider] - Forms: ED Department Discharge Additional Instructions: please read discharge instruction on asthma exacerbation increase oral fluids prednisone 40 mg once daily take augmentin 875 mg twice daily for 20 days albuterol inhaler 2 puffs every 4-6 hours as needed for shortness of breath Sepsis Event Note - Evaluation Sepsis Screening Result: No Definite Risk - Focused Exam Vital Signs: Vital Signs Temp Pulse Resp BP Pulse Ox 02/10/20 18:46 36.9 C 115 H 24 H 96/58 L 100 Date Exam was Performed: 02/10/20 Time Exam was Performed: 22:01 - My Orders Last 24 Hours: My Active Orders 02/10/20 19:13 CULTURE STREP A CONFIRMATION [RM] Routine STREP SCRN A RAPID W CULT CONF [] Routine 02/10/20 19:52 RT Aerosol Therapy [RC] ASDIRECTED - Assessment/Plan Last 24 Hours: My Active Orders 02/10/20 19:13 CULTURE STREP A CONFIRMATION [RM] Routine STREP SCRN A RAPID W CULT CONF [] Routine 02/10/20 19:52 RT Aerosol Therapy [RC] ASDIRECTED
[2020-02-10] MEDS ORDERED: Albuterol/Ipratropium 3.0-0.5 MG/3 ML Neb Soln NEB ONE (19:50)
[2020-02-10] MEDS ORDERED: Amoxicillin/Clavulanate K 875-125 MG Tab PO STA (19:50)
[2020-02-10] MEDS ORDERED: methylPREDNISolone Sodium Succinate 125 MG/2 ML SDV IM ONE (19:50)
== END 2020-02-10 20:10 | disposition home or self-care (01) ==
LOC: FB.ED 18:46
DX: J45.901 Unspecified asthma with (acute) exacerbation (principal); I10 Essential (primary) hypertension; F32.9 Major depressive disorder, single episode, unspecified; F41.9 Anxiety disorder, unspecified; M19.90 Unspecified osteoarthritis, unspecified site; E66.9 Obesity, unspecified; Z68.43 Body mass index [BMI] 50.0-59.9, adult; F17.210 Nicotine dependence, cigarettes, uncomplicated; Z88.5 Allergy status to narcotic agent; Z91.040 Latex allergy status; Z79.899 Other long term (current) drug therapy
CPT/HCPCS: 87081; 87880-QW; 96372; 99285-25; A9270-GY; J2930; J7620-GY

== ENCOUNTER 2020-08-26 15:35 | Emergency (ER) | payer MEDICAID ==
[2020-08-26] MEDS ORDERED: Albuterol/Ipratropium 3.0-0.5 MG/3 ML Neb Soln NEB ONE (16:12)
--- NOTE | 2020-08-26 16:17 | EDM.PDOC ---
ED HPI GENERAL MEDICAL PROBLEM - General Chief Complaint: Respiratory Problem Stated Complaint: COUGH, SOB Time Seen by Provider: 08/26/20 16:14 Source of Information: Reports: Patient History Limitations: Reports: No Limitations - History of Present Illness INITIAL COMMENTS - FREE TEXT/NARRATIVE: Presents with worsening cough and SOB x 2 days. Denies known exposure to COVID-19. She does have a history of Asthma and continues to smoke cigarettes. Onset Date: 08/24/20 - Related Data Allergies Allergy/AdvReac Type Severity Reaction Status Date / Time Latex, Natural Rubber Allergy Swelling Verified 02/10/20 18:56 morphine Allergy Hives Verified 02/10/20 18:56 Home Meds: Home Meds Escitalopram [Lexapro] 20 mg PO BEDTIME 10/10/16 [History] Albuterol [Ventolin HFA] 2 puff .XX Q4H PRN 04/17/19 [History] Fluticasone Propionate [Flovent HFA 110 MCG] 2 puff INH DAILY 04/17/19 [History] Amitriptyline [Elavil] 50 mg BEDTIME 02/10/20 [History] Amoxicillin/Clavulanate K [Augmentin 875-125 MG] 1 tab PO BID #20 tablet 02/10/20 [Rx] Lisinopril/Hydrochlorothiazide [Lisinopril-Hctz 10-12.5 mg Tab] 1 tab DAILY 02/10/20 [History] predniSONE [Prednisone] 60 mg PO DAILY 4 Days #12 tablet 08/26/20 [Rx] Past Medical History HEENT History: Reports: Impaired Vision Cardiovascular History: Reports: Hypertension Respiratory History: Reports: Asthma, Other (See Below) Other Respiratory History: Smoker. Gastrointestinal History: Reports: Cholelithiasis, Other (See Below) Other Gastrointestinal History: colitis Genitourinary History: Reports: Renal Calculus, UTI, Recurrent Other Genitourinary History: Bladder surgery. 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 Musculoskeletal History: Reports: Arthritis, Fibromyalgia, Other (See Below) Other Musculoskeletal History: Carpal tunnel R wrist. Sciatica. Neurological History: Reports: Concussion, Migraines Psychiatric History: Reports: Anxiety, Depression, Psych Hospitalization(s), Suicide Attempt Endocrine/Metabolic History: Reports: Obesity/BMI 30+ Hematologic History: Reports: Anemia, Iron Deficiency Oncologic (Cancer) History: Reports: Lymphoma, Uterine - Infectious Disease History Infectious Disease History: Reports: Chicken Pox - Past Surgical History HEENT Surgical History: Reports: Adenoidectomy, Oral Surgery, Tonsillectomy Respiratory Surgical History: Reports: None GI Surgical History: Reports: Appendectomy, Cholecystectomy Female Surgical History: Reports: Hysterectomy, Tubal Ligation, Other (See Below) Other Female Surgeries/Procedures: bladder repair with mesh Endocrine Surgical History: Reports: None Neurological Surgical History: Reports: None Musculoskeletal Surgical History: Reports: Arthroscopic Knee, Carpal Tunnel Other Musculoskeletal Surgeries/Procedures:: R carpal tunnel surgery Oncologic Surgical History: Reports: Other (See Below) Social & Family History - Family History Family Medical History: Noncontributory - Tobacco Use Tobacco Use Status *Q: Current Every Day Tobacco User Tobacco Use Within Last Twelve Months: Cigarettes - Caffeine Use Caffeine Use: Reports: Soda, Tea - Living Situation & Occupation Living situation: Reports: , with Family Occupation: Unemployed ED ROS GENERAL - Review of Systems Review Of Systems: Comprehensive ROS is negative, except as noted in HPI. ED EXAM, GENERAL - Physical Exam Exam: See Below Exam Limited By: No Limitations General Appearance: Alert, WD/WN, No Apparent Distress Nose: Normal Inspection Throat/Mouth: No Airway Compromise Head: Atraumatic, Normocephalic Neck: Full Range of Motion Respiratory/Chest: No Respiratory Distress, Decreased Breath Sounds, Wheezing Cardiovascular: Regular Rate, Rhythm, No Murmur Back Exam: Full Range of Motion Extremities: Normal Range of Motion Neurological: Alert, Normal Cognition Psychiatric: Normal Affect, Normal Mood Skin Exam: Warm, Dry, Intact Course - Vital Signs Last Recorded V/S: Last Vital Signs Temp 36.8 C 08/26/20 15:40 Pulse 117 H 08/26/20 15:40 Resp 20 08/26/20 15:40 BP 162/74 H 08/26/20 15:40 Pulse Ox 95 08/26/20 15:40 - Orders/Labs/Meds Orders: Active Orders 24 hr Category Date Time Status RT Aerosol Therapy [RC] ASDIRECTED Care 08/26/20 16:12 Active Isolation [COMM] Routine Oth 08/26/20 16:13 Ordered Labs: Laboratory Tests 08/26/20 Range/Units 16:15 SARS-CoV-2 RNA (JJ) Negative (NEGATIVE) Microbiology 08/26/20 16:15 Influenza Type A Antigen Screen - Final Nasopharyngeal Swab NEGATIVE INFLUENZA A VIRUS AG REFERENCE RANGE: NEGATIVE Influenza Type B Antigen Screen - Final NEGATIVE INFLUENZA B VIRUS AG REFERENCE RANGE: NEGATIVE Meds: Medications Discontinued Medications Generic Name Dose Route Start Last Admin Trade Name Freq PRN Reason Stop Dose Admin Albuterol/Ipratropium 3 ml 08/26/20 16:12 08/26/20 16:19 Duoneb 3.0-0.5 Mg/3 Ml NEB 08/26/20 16:13 3 ml ONETIME ONE Administration - Radiology Interpretation Free Text/Narrative:: CXR: No acute process. (ED provider interpretation) - Re-Assessments/Exams Free Text/Narrative Re-Assessment/Exam: 08/26/20 17:46 Symptoms improved, wheezing and aeration improved after Duoneb. Departure - Departure Time of Disposition: 17:47 Disposition: Home, Self-Care 01 Condition: Good Clinical Impression: URI (upper respiratory infection) Qualifiers: URI type: unspecified viral URI Qualified Code(s): J06.9 - Acute upper respiratory infection, unspecified Asthma exacerbation Qualifiers: Asthma severity: moderate Asthma persistence: persistent Qualified Code(s): J45.41 - Moderate persistent asthma with (acute) exacerbation - Discharge Information *PRESCRIPTION DRUG MONITORING PROGRAM REVIEWED*: No *COPY OF PRESCRIPTION DRUG MONITORING REPORT IN PATIENT CHAITANYA: Not Applicable Prescriptions: predniSONE [Prednisone] 60 mg PO DAILY 4 Days #12 tablet Instructions: Upper Respiratory Infection, Adult, [id number], Asthma, Adult, [id number], Steps to Quit Smoking, [id number] Referrals: PCP,None [Primary Care Provider] - Forms: ED Department Discharge Additional Instructions: Fill the Prednisone prescription at [facility] and take as directed. Continue inhalers and nebulizers. Follow up with your primary physician in 2-3 days. Return to the ER if symptoms worsen. Sepsis Event Note (ED) - Focused Exam Vital Signs: Vital Signs Temp Pulse Resp BP Pulse Ox 08/26/20 15:40 36.8 C 117 H 20 162/74 H 95 - My Orders Last 24 Hours: My Active Orders 08/26/20 16:12 RT Aerosol Therapy [RC] ASDIRECTED 08/26/20 16:13 Isolation [COMM] Routine - Assessment/Plan Last 24 Hours: My Active Orders 08/26/20 16:12 RT Aerosol Therapy [RC] ASDIRECTED 08/26/20 16:13 Isolation [COMM] Routine
--- NOTE | 2020-08-26 17:29 | CR ---
INDICATION: Cough. Shortness of breath. CHEST, ONE VIEW: AP upright portable view of the chest was obtained 08/26/20 and compared with 06/08/14. Evidence of exogenous obesity is noted. Heart did not appear enlarged. A definite active infiltrate or effusion was not identified, although the penetration at the left lung base is not adequate to exclude patchy pneumonia. IMPRESSION: 1. No definite acute process. 2. Difficult to entirely exclude patchy pneumonia at the left lung base. 3. Exogenous obesity. MTDD
[2020-08-26] MEDS ORDERED: predniSONE 20 MG Tab PO ONE (17:46)
[2020-08-26 18:03] VITALS: BP 135/74; PULSE 89
== END 2020-08-26 18:00 | disposition home or self-care (01) ==
LOC: FB.ED 15:35
DX: J45.41 Moderate persistent asthma with (acute) exacerbation (principal); J06.9 Acute upper respiratory infection, unspecified; I10 Essential (primary) hypertension; F41.9 Anxiety disorder, unspecified; F32.9 Major depressive disorder, single episode, unspecified; E66.9 Obesity, unspecified; Z20.828 Contact with and (suspected) exposure to other viral communicable diseases; Z79.899 Other long term (current) drug therapy
CPT/HCPCS: 71045; 87804; 87804-59; 94640; 99285-25; J7512; J7620-GY; U0002

== ENCOUNTER 2021-06-28 19:12 | Emergency (ER) | payer MEDICAID ==
[2021-06-28] MEDS ORDERED: Acetaminophen/HYDROcodone 325-5 MG Tab PO STA (20:03)
[2021-06-28] MEDS ORDERED: Ketorolac 30 MG/ML SDV IM STA (20:03)
[2021-06-28] MEDS ORDERED: Ondansetron 4 MG Tab.DIS PO STA (20:03)
[2021-06-28 20:07] VITALS: BP 106/66; PULSE 101
--- NOTE | 2021-06-28 20:09 | EDM.PDOC ---
ED HPI GENERAL MEDICAL PROBLEM - General Chief Complaint: Headache Stated Complaint: HEADACHE Time Seen by Provider: 06/28/21 19:30 Source of Information: Reports: Patient History Limitations: Reports: No Limitations - History of Present Illness INITIAL COMMENTS - FREE TEXT/NARRATIVE: Patient presented to the ED because of headache which started 2 days ago. It's throbbing over the bi frontal area, 8/10 with associated nausea, photophobia. She took her medications for migraine without relief. She does see a Neurologist for botox injection which help with her migraine. There is no fever, chills, neck stiffness. - Related Data Allergies Allergy/AdvReac Type Severity Reaction Status Date / Time Latex, Natural Rubber Allergy Swelling Verified 08/26/20 18:06 morphine Allergy Hives Verified 08/26/20 18:06 Home Meds: Home Meds Albuterol [Ventolin HFA] 2 puff INH Q4H PRN 04/17/19 [History] Fluticasone Propionate [Flovent HFA 110 MCG] 2 puff INH DAILY 04/17/19 [History] Amitriptyline [Elavil] 50 mg PO BEDTIME 02/10/20 [History] Lisinopril/Hydrochlorothiazide [Lisinopril-Hctz 10-12.5 mg Tab] 1 tab PO DAILY 02/10/20 [History] predniSONE [Prednisone] 60 mg PO DAILY 4 Days #12 tablet 08/26/20 [Rx] Ondansetron [Zofran ODT] 4 mg PO Q4H PRN #7 tab.dis 06/28/21 [Rx] Past Medical History HEENT History: Reports: Impaired Vision Cardiovascular History: Reports: Hypertension Respiratory History: Reports: Asthma, Other (See Below) Other Respiratory History: Smoker. Gastrointestinal History: Reports: Cholelithiasis, Other (See Below) Other Gastrointestinal History: colitis Genitourinary History: Reports: Renal Calculus, UTI, Recurrent Other Genitourinary History: Bladder surgery. 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 Musculoskeletal History: Reports: Arthritis, Fibromyalgia, Other (See Below) Other Musculoskeletal History: Carpal tunnel R wrist. Sciatica. Neurological History: Reports: Concussion, Migraines Psychiatric History: Reports: Anxiety, Depression, Psych Hospitalization(s), Suicide Attempt Endocrine/Metabolic History: Reports: Obesity/BMI 30+ Hematologic History: Reports: Anemia, Iron Deficiency Immunologic History: Reports: HIV Oncologic (Cancer) History: Reports: Lymphoma, Uterine - Infectious Disease History Infectious Disease History: Reports: Chicken Pox - Past Surgical History HEENT Surgical History: Reports: Adenoidectomy, Oral Surgery, Tonsillectomy Respiratory Surgical History: Reports: None GI Surgical History: Reports: Appendectomy, Cholecystectomy Female Surgical History: Reports: Hysterectomy, Tubal Ligation, Other (See Below) Other Female Surgeries/Procedures: bladder repair with mesh Endocrine Surgical History: Reports: None Neurological Surgical History: Reports: None Musculoskeletal Surgical History: Reports: Arthroscopic Knee, Carpal Tunnel Other Musculoskeletal Surgeries/Procedures:: R carpal tunnel surgery Oncologic Surgical History: Reports: Other (See Below) Social & Family History - Family History Family Medical History: No Pertinent Family History - Caffeine Use Caffeine Use: Reports: Soda, Tea - Living Situation & Occupation Living situation: Reports: , with Family Occupation: Unemployed ED ROS GENERAL - Review of Systems Review Of Systems: See Below Constitutional: Reports: No Symptoms HEENT: Reports: No Symptoms Respiratory: Reports: No Symptoms Cardiovascular: Reports: No Symptoms Endocrine: Reports: No Symptoms GI/Abdominal: Reports: Nausea : Reports: No Symptoms Musculoskeletal: Reports: No Symptoms Skin: Reports: No Symptoms Neurological: Reports: Headache Psychiatric: Reports: No Symptoms Hematologic/Lymphatic: Reports: No Symptoms - Physical Exam Exam: See Below Exam Limited By: No Limitations General Appearance: Alert, No Apparent Distress Eye Exam: Bilateral Eye: PERRL Ears: Normal External Exam, Normal Canal Nose: Normal Inspection, Normal Mucosa, No Blood Throat/Mouth: Normal Inspection, Normal Lips, Normal Teeth, Normal Gums Head Exam: Atraumatic, Normocephalic Neck: Normal Inspection, Supple, Non-Tender, Full Range of Motion Respiratory/Chest: No Respiratory Distress, Lungs Clear, Normal Breath Sounds, No Accessory Muscle Use, Chest Non-Tender Cardiovascular: Normal Peripheral Pulses, Regular Rate, Rhythm, No Edema, No Gallop, No JVD, No Murmur GI/Abdominal: Normal Bowel Sounds, Soft, Non-Tender, No Organomegaly Neuro Exam (Abbreviated): Alert, Oriented, CN II-XII Intact, Normal Cognition, Normal Gait, Normal Reflexes, No Motor/Sensory Deficits Back Exam: Normal Inspection Extremities: Normal Inspection Psychiatric: Normal Affect Skin Exam: Warm Course - Vital Signs Text/Narrative:: Toradol 60 mg IM x1 [place] 5 mg 2 PO x1 Zofran 4 mg ODT PO x1 Last Recorded V/S: Last Vital Signs Temp 36.3 C 06/28/21 19:25 Pulse 101 H 06/28/21 19:25 Resp 18 06/28/21 19:25 BP 106/66 06/28/21 19:25 Pulse Ox 94 L 06/28/21 19:25 - Orders/Labs/Meds Meds: Medications Discontinued Medications Generic Name Dose Route Start Last Admin Trade Name Freq PRN Reason Stop Dose Admin Hydrocodone Bitart/Acetaminophen 2 tab 06/28/21 20:03 06/28/21 20:16 Acetaminophen/Hydrocodone 325-5 Mg Tab PO 06/28/21 20:04 2 tab NOW STA Administration Ketorolac Tromethamine 60 mg 06/28/21 20:03 06/28/21 20:13 Ketorolac 30 Mg/Ml Sdv IM 06/28/21 20:04 60 mg NOW STA Administration Ondansetron HCl 4 mg 06/28/21 20:03 06/28/21 20:16 Ondansetron 4 Mg Tab.Dis PO 06/28/21 20:04 4 mg NOW STA Administration Departure - Departure Time of Disposition: 20:30 Disposition: Home, Self-Care 01 Condition: Good Clinical Impression: Migraine - Discharge Information Prescriptions: Ondansetron [Zofran ODT] 4 mg PO Q4H PRN #7 tab.dis PRN Reason: Nausea Instructions: Chronic Migraine Headache Referrals: Sonny Phipps MD [Primary Care Provider] - Forms: ED Department Discharge Additional Instructions: Please read discharge instructions on migraine Zofran ODT 4 mg every 4 hours as needed for nausea Ibuprofen 800 mg wit tylenol 1000 mg every 8 hours as needed for pain Follow up as needed
== END 2021-06-28 20:25 | disposition home or self-care (01) ==
LOC: FB.ED 19:12
DX: G43.909 Migraine, unspecified, not intractable, without status migrainosus (principal); I10 Essential (primary) hypertension; J45.909 Unspecified asthma, uncomplicated; M19.90 Unspecified osteoarthritis, unspecified site; F17.200 Nicotine dependence, unspecified, uncomplicated; E66.9 Obesity, unspecified; Z68.42 Body mass index [BMI] 45.0-49.9, adult; Z91.040 Latex allergy status; Z88.5 Allergy status to narcotic agent; Z79.899 Other long term (current) drug therapy
CPT/HCPCS: 96372; 99283; A9270; J1885

== ENCOUNTER 2021-10-15 19:39 | Emergency (ER) | payer MEDICAID ==
[2021-10-15 20:36] VITALS: BP 123/82; PULSE 100
--- NOTE | 2021-10-15 20:43 | EDM.PDOC ---
ED HPI GENERAL MEDICAL PROBLEM - General Stated Complaint: left side pain Time Seen by Provider: 10/15/21 20:20 Source of Information: Reports: Patient History Limitations: Reports: No Limitations - History of Present Illness INITIAL COMMENTS - FREE TEXT/NARRATIVE: Patient presented to the ED because of cough and cold for 2 days with associated pleuritic chest pain. There is no fever, chills, dyspnea. She just want to be checked because she is taking immunosuppressive drugs and in the past she had pneumonia. Left Rib Pain Score (Numeric/FACES): 9 - Related Data Allergies Allergy/AdvReac Type Severity Reaction Status Date / Time Latex, Natural Rubber Allergy Swelling, Verified 10/15/21 19:56 Rash morphine Allergy Hives, Verified 10/15/21 19:56 Swelling Home Meds: Home Meds Albuterol [Ventolin HFA] 2 puff INH Q4H PRN 04/17/19 [History] Fluticasone Propionate [Flovent HFA 110 MCG] 2 puff INH DAILY 04/17/19 [History] Amitriptyline [Elavil] 50 mg PO BEDTIME 02/10/20 [History] DULoxetine [Cymbalta] 30 mg PO DAILY 06/30/21 [History] Folic Acid 1 mg PO DAILY 06/30/21 [History] Hydroxychloroquine Sulfate [Plaquenil] 200 mg PO BID 06/30/21 [History] Ibuprofen 600 mg PO ASDIRECTED PRN 06/30/21 [History] Ketorolac [Toradol] 30 mg IM ASDIRECTED PRN 06/30/21 [History] Methotrexate 12.5 mg PO Q7D 06/30/21 [History] Pregabalin [Lyrica] 200 mg PO BID 06/30/21 [History] hydroCHLOROthiazide [Hydrochlorothiazide] 12.5 mg PO DAILY 06/30/21 [History] Adalimumab [Humira(Cf) Pen] 40 mg INJECT ASDIRECTED 10/15/21 [History] Naproxen 500 mg PO BID #15 tablet 10/15/21 [Rx] Past Medical History HEENT History: Reports: Impaired Vision Cardiovascular History: Reports: Hypertension Respiratory History: Reports: Asthma, Pneumonia, Recurrent, Other (See Below) Other Respiratory History: Smoker. Gastrointestinal History: Reports: Cholelithiasis, Other (See Below) Other Gastrointestinal History: Colitis. Genitourinary History: Reports: Renal Calculus, UTI, Recurrent Other Genitourinary History: Bladder surgery. 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 Musculoskeletal History: Reports: Arthritis, Fibromyalgia, RA, Other (See Below) Other Musculoskeletal History: Carpal tunnel right wrist. Sciatica on left. Neurological History: Reports: Concussion, Migraines Psychiatric History: Reports: Anxiety, Depression, Psych Hospitalization(s), Suicide Attempt Endocrine/Metabolic History: Reports: Obesity/BMI 30+ Hematologic History: Reports: Anemia, Iron Deficiency Immunologic History: Reports: HIV Oncologic (Cancer) History: Reports: Lymphoma, Uterine - Infectious Disease History Infectious Disease History: Reports: Chicken Pox - Past Surgical History HEENT Surgical History: Reports: Adenoidectomy, Oral Surgery, Tonsillectomy Respiratory Surgical History: Reports: None GI Surgical History: Reports: Appendectomy, Cholecystectomy Female Surgical History: Reports: Hysterectomy, Tubal Ligation, Other (See Below) Other Female Surgeries/Procedures: bladder repair with mesh Endocrine Surgical History: Reports: None Neurological Surgical History: Reports: None Musculoskeletal Surgical History: Reports: Arthroscopic Knee, Carpal Tunnel Other Musculoskeletal Surgeries/Procedures:: R carpal tunnel surgery Oncologic Surgical History: Reports: Other (See Below) Social & Family History - Family History Family Medical History: No Pertinent Family History - Caffeine Use Caffeine Use: Reports: Soda, Tea - Living Situation & Occupation Living situation: Reports: , with Family Occupation: Unemployed ED ROS GENERAL - Review of Systems Review Of Systems: See Below Constitutional: Reports: No Symptoms HEENT: Reports: No Symptoms Respiratory: Reports: Pleuritic Chest Pain, Cough Cardiovascular: Reports: No Symptoms Endocrine: Reports: No Symptoms GI/Abdominal: Reports: No Symptoms : Reports: No Symptoms Musculoskeletal: Reports: No Symptoms Skin: Reports: No Symptoms Neurological: Reports: No Symptoms Psychiatric: Reports: No Symptoms ED EXAM, GENERAL - Physical Exam Exam: See Below Exam Limited By: No Limitations General Appearance: Alert, No Apparent Distress Ears: Normal External Exam, Normal Canal Nose: Normal Inspection, Normal Mucosa, No Blood Throat/Mouth: Normal Inspection, Normal Lips, Normal Teeth Head: Atraumatic, Normocephalic Neck: Normal Inspection, Supple, Non-Tender, Full Range of Motion Respiratory/Chest: No Respiratory Distress, Lungs Clear, Normal Breath Sounds, Other (tenderness left rib area) Cardiovascular: Normal Peripheral Pulses, Regular Rate, Rhythm, No Edema, No Gallop, No JVD, No Murmur, No Rub GI/Abdominal: Normal Bowel Sounds, Soft, Non-Tender, No Organomegaly, No Distention, No Abnormal Bruit Back Exam: Normal Inspection, Full Range of Motion Extremities: Normal Inspection, Normal Range of Motion, Non-Tender, No Pedal Edema, Normal Capillary Refill Neurological: Alert, Oriented, CN II-XII Intact, Normal Cognition, Normal Gait, Normal Reflexes, No Motor/Sensory Deficits Course - Vital Signs Text/Narrative:: Chest and left rib xray-negative Last Recorded V/S: Last Vital Signs Temp 36.5 C 10/15/21 20:15 Pulse 100 10/15/21 20:15 Resp 16 10/15/21 20:15 BP 123/82 10/15/21 20:15 Pulse Ox 100 10/15/21 20:15 - Orders/Labs/Meds Orders: Active Orders 24 hr Category Date Time Status Ribs 2V w Chest Lt [CR] Stat Exams 10/15/21 20:09 Taken Meds: Medications Discontinued Medications Generic Name Dose Route Start Last Admin Trade Name Jon PRN Reason Stop Dose Admin Naproxen 500 mg 10/15/21 20:46 10/15/21 20:57 Naproxen 500 Mg Tab PO 10/15/21 20:47 500 mg ONETIME ONE Administration Departure - Departure Time of Disposition: 20:45 Disposition: Home, Self-Care 01 Condition: Good Clinical Impression: URI (upper respiratory infection), Pleuritic pain - Discharge Information Prescriptions: Naproxen 500 mg PO BID #15 tablet Instructions: Chest Wall Pain, [id number], Upper Respiratory Infection, Adult, [id number] Referrals: Sonny Phipps MD [Primary Care Provider] - Forms: ED Department Discharge Additional Instructions: Please read discharge instructions on viral URI and chest wall pain Take naproxen 500 mg twice daily for 7 days Do not take the ibuprofen for 1 week because you will be taking Naproxen Follow up as needed Sepsis Event Note (ED) - Evaluation Sepsis Screening Result: No Definite Risk - My Orders Last 24 Hours: My Active Orders 10/15/21 20:09 Ribs 2V w Chest Lt [CR] Stat - Assessment/Plan Last 24 Hours: My Active Orders 10/15/21 20:09 Ribs 2V w Chest Lt [CR] Stat
[2021-10-15] MEDS ORDERED: Naproxen 500 MG Tab PO ONE (20:46)
== END 2021-10-15 21:00 | disposition home or self-care (01) ==
LOC: FB.ED 19:39
DX: R07.81 Pleurodynia (principal); J06.9 Acute upper respiratory infection, unspecified; I10 Essential (primary) hypertension; E66.9 Obesity, unspecified; Z68.42 Body mass index [BMI] 45.0-49.9, adult; Z88.5 Allergy status to narcotic agent; Z91.040 Latex allergy status
CPT/HCPCS: 71101; 99284; A9270

== ENCOUNTER 2021-12-30 05:47 | Emergency (ER) | payer MEDICAID ==
[2021-12-30] MEDS ORDERED: Ketorolac 30 MG/ML SDV IM ONE (06:16)
[2021-12-30] MEDS ORDERED: Ondansetron 4 MG Tab.DIS PO ONE (06:16)
[2021-12-30] MEDS ORDERED: HYDROmorphone 2 MG/ML SDV IM ONE (06:24)
[2021-12-30] MEDS ORDERED: Penicillin V Potassium 250 MG Tab PO STA (06:27)
[2021-12-30 07:10] VITALS: BP 155/98; PULSE 99
== END 2021-12-30 06:45 | disposition home or self-care (01) ==
LOC: FB.ED 05:47
DX: K12.2 Cellulitis and abscess of mouth (principal); I10 Essential (primary) hypertension; J45.909 Unspecified asthma, uncomplicated; E66.9 Obesity, unspecified; Z91.040 Latex allergy status; Z88.5 Allergy status to narcotic agent; Z68.42 Body mass index [BMI] 45.0-49.9, adult
CPT/HCPCS: 96372; 99283; A9270-GY; J1170; Q0162

== ENCOUNTER 2023-05-29 15:32 | Emergency (ER) | payer MEDICAID ==
[2023-05-29] MEDS: Acetaminophen/HYDROcodone 325-5 MG Tab PO ONE (16:13)
[2023-05-29 19:08] VITALS: BP 119/81; PULSE 81
== END 2023-05-29 17:37 | disposition home or self-care (01) ==
LOC: FB.ED 15:32
DX: S09.90XA Unspecified injury of head, initial encounter (principal); I10 Essential (primary) hypertension; J45.909 Unspecified asthma, uncomplicated; E66.9 Obesity, unspecified; Z68.36 Body mass index [BMI] 36.0-36.9, adult; Z88.5 Allergy status to narcotic agent; Z91.040 Latex allergy status; W31.89XA Contact with other specified machinery, initial encounter
CPT/HCPCS: 70450; 99283; 99284; A9270-GY

== ENCOUNTER 2023-08-20 01:56 | Emergency (ER) | payer MEDICAID ==
[2023-08-20] MEDS ORDERED: Ondansetron 4 MG/2 ML SDV IVPUSH ONE (03:24)
[2023-08-20] MEDS ORDERED: Sodium Chloride 0.9% 1,000 ML IV ONE (03:24)
[2023-08-20] MEDS ORDERED: Sodium Chloride 0.9% 10 ML Syringe FLUSH PRN (03:24)
[2023-08-20 03:51] LABS: BASOPHILS PERCENT AUTO 0.3 % (0.2-1.5); EOSINOPHILS ABSOLUTE AUTO 0.1 x10-3/uL (0.0-0.8); EOSINOPHILS PERCENT AUTO 1.3 % (0.6-8.1); HEMATOCRIT 41.6 % (34.2-48.2); HEMOGLOBIN 13.3 g/dL (11.4-15.5); LYMPHOCYTES ABSOLUTE AUTO 1.2 x10-3/uL (1.0-4.4); LYMPHOCYTES PERCENT AUTO 16.8 % (18.4-52.1); MEAN CORPUSCULAR HEMOGLOBIN 20.8 pg (23.9-33.9); MEAN PLATELET VOLUME 8.8 fL (7.1-12.4); MONOCYTES ABSOLUTE AUTO 0.4 x10-3/uL (0.3-1.0); MONOCYTES PERCENT AUTO 5.9 % (4.4-15.7); NEUTROPHILS ABSOLUTE AUTO 5.6 x10-3/uL (1.5-6.3); NEUTROPHILS PERCENT AUTO 75.7 % (30.8-76.2); PLATELET COUNT,PLT 152 x10(3)uL (151-488); RED CELL DISTRIBUTION WIDTH 16.9 % (12.3-16.5); WHITE BLOOD CELL COUNT,WBC 7.4 x10-3/uL (3.0-10.3)
[2023-08-20 03:54] LABS: BLOOD UREA NITROGEN,BUN 18 mg/dL (7-18); CALCIUM 9.3 mg/dL (8.6-10.2); CARBON DIOXIDE,CO2 28 mmol/L (21-32); CHLORIDE,CL 104 mmol/L (100-110); CREATININE 0.9 mg/dL (0.55-1.02); EST CRCL DRUG DOSING (CG) 64.54 mL/min; ESTIMATED GFR 81 mL/min (>60); GLUCOSE RANDOM 105 mg/dL (80-116); POTASSIUM,K 3.2 mmol/L (3.5-5.3); SODIUM,NA 138 mmol/L (135-145)
[2023-08-20 04:01] LABS: A/G RATIO 0.8; ALANINE AMINOTRANSFERASE,ALT 23 U/L (12-36); ALBUMIN 3.3 g/dL (3.5-5.2); ALKALINE PHOSPHATASE 72 IU/L (56-112); ASPARTATE AMNIOTRANSFERASE,AST 12 IU/L (5-25); BILIRUBIN TOTAL 0.3 mg/dL (0.1-1.3); MAGNESIUM 1.6 mg/dL (1.8-2.5); PROTEIN TOTAL,TP 7.6 g/dL (6.0-8.0)
[2023-08-20] MEDS ORDERED: Iopamidol 755 Mg/ML 100 ML Bottle IV ONE (04:04)
[2023-08-20 04:16] LABS: BILIRUBIN,URINE SMALL (NEGATIVE); GLUCOSE,URINE NORMAL (NORMAL); KETONES,URINE 15 mg/dL (NEGATIVE); LEUKOCYTE ESTERASE,URINE SMALL (NEGATIVE); NITRITE,URINE NEGATIVE (NEGATIVE); OCCULT BLOOD,URINE NEGATIVE (NEGATIVE); PROTEIN,URINE 30 mg/dL (NEGATIVE); UROBILINOGEN,URINE 1 mg/dL (NEGATIVE)
[2023-08-20 04:25] LABS: APPEARANCE,URINE SLIGHTLY CLOUDY (CLEAR); COLOR,URINE YELLOW (YELLOW)
[2023-08-20 04:26] LABS: BACTERIA,URINE FEW (NS); FINE GRANULAR CASTS,URINE OCCASIONAL (NS); MUCUS,URINE MODERATE (NS); RBC,URINE 0-5 (0-5); SQUAMOUS EPITHELIAL CELLS,UR FEW (NS,R,O); WBC,URINE 0-5 (0-5)
[2023-08-20] MEDS ORDERED: Metoclopramide 10 MG/2 ML SDV IVPUSH ONE (05:29)
[2023-08-20] MEDS ORDERED: Potassium Chloride 20 MEQ Tab.ER PO ONE (05:29)
[2023-08-20] MEDS ORDERED: Magnesium Oxide 400 MG Tab PO ONE (05:29)
[2023-08-20 07:05] VITALS: BP 108/82; PULSE 89
== END 2023-08-20 07:04 | disposition home or self-care (01) ==
LOC: FB.ED 01:56
DX: K31.84 Gastroparesis (principal); N83.291 Other ovarian cyst, right side; I10 Essential (primary) hypertension; J45.909 Unspecified asthma, uncomplicated; F17.200 Nicotine dependence, unspecified, uncomplicated; E66.9 Obesity, unspecified; Z68.37 Body mass index [BMI] 37.0-37.9, adult; Z91.040 Latex allergy status; Z88.5 Allergy status to narcotic agent; Z79.899 Other long term (current) drug therapy
CPT/HCPCS: 36415; 74177; 80053; 81001; 83735; 85025; 86140; 96361; 96374; 96375; 99285; A9270; J2405; J2765; J7030; Q9967

== ENCOUNTER 2024-12-04 07:28 | Emergency (ER) | payer MEDICAID ==
[2024-12-04] MEDS: Albuterol/Ipratropium 3.0-0.5 MG/3 ML Neb Soln NEB ONE (08:28)
[2024-12-04] MEDS: Albuterol 0.083% 2.5 MG/3 ML Neb Soln NEB ONE (08:28)
[2024-12-04] MEDS: predniSONE 20 MG Tab PO ONE (08:28)
[2024-12-04] MEDS: Ondansetron 4 MG Tab.DIS PO ONE (08:28)
[2024-12-04 09:11] VITALS: BP 127/77; PULSE 108
== END 2024-12-04 09:40 | disposition home or self-care (01) ==
LOC: FB.ED 07:28
DX: J10.1 Influenza due to other identified influenza virus with other respiratory manifestations (principal); J45.901 Unspecified asthma with (acute) exacerbation; R11.0 Nausea; I10 Essential (primary) hypertension; E66.9 Obesity, unspecified; F17.210 Nicotine dependence, cigarettes, uncomplicated; Z88.8 Allergy status to other drugs, medicaments and biological substances; Z91.040 Latex allergy status; Z88.5 Allergy status to narcotic agent; Z79.899 Other long term (current) drug therapy; Z90.49 Acquired absence of other specified parts of digestive tract; Z90.710 Acquired absence of both cervix and uterus; Z68.34 Body mass index [BMI] 34.0-34.9, adult
CPT/HCPCS: 71046; 87428; 94640; 99285; J7512; Q0162; J7620